=== PATIENT | male | born 1955 | race American Indian/Alaskan Native ===

== ENCOUNTER 2022-01-29 10:27 | Inpatient (IN) | payer SELFPAY ==
[2022-01-29 12:08] LABS: Alanine Aminotransferase 37 units/L (7-56); Albumin 3.8 g/dL (3.9-5); BUN/Creatinine Ratio 28; Blood Urea Nitrogen 33 mg/dL (9-20); Calcium 8.8 mg/dL (8.4-10.2); Hemolysis Index 0
--- NOTE | 2022-01-29 12:14 | Emergency Department Report ---
ED General Adult HPI - General Chief complaint: Dyspnea/Respdistress Stated complaint: FEEL SICK PUI?: Yes Time Seen by Provider: 01/29/22 11:13 Source: patient Mode of arrival: Ambulatory Limitations: No Limitations - History of Present Illness Initial comments: THIS IS A 66 YEAR OLD MALE WHO DENIES ANY PAST MEDICAL OR SURGICAL HISTORY AND STATES HE SMOKES MARIJUANA AND NOT CIGARETTE BROUGHT IN BY EMS TODAY WITH CONCERN OF SHORT OF BREATH FOR THE PAST FEW DAYS. PATIENT DENIES ANY OTHER SYMPTOMS. Denies fever chill night sweat dizziness blurred vision lightheadedness headache tinnitus ear pain runny nose sore throat loss of taste or smell chest pain palpitation abdominal pain nausea vomiting diarrhea constipation joint pain muscle pain new rash and heat or cold intolerance. Severity scale (0 -10): 0 - Related Data Allergies Allergy/AdvReac Type Severity Reaction Status Date / Time No Known Allergies Allergy Unverified 01/29/22 12:29 ED Review of Systems ROS: Stated complaint: FEEL SICK Other details as noted in HPI Comment: All other systems reviewed and negative Constitutional: no symptoms reported Eyes: as per HPI ENT: as per HPI Respiratory: cough, shortness of breath Cardiovascular: as per HPI Endocrine: no symptoms reported Gastrointestinal: as per HPI Musculoskeletal: as per HPI Skin: as per HPI Neurological: as per HPI Psychiatric: as per HPI Hematological/Lymphatic: as per HPI ED Past Medical Hx - Past Medical History Previous Medical History?: Yes ED Physical Exam - General Limitations: No Limitations, Altered Mental Status General appearance: alert, in distress (APPEARS TO BE IN MILD SOB) - Head Head exam: Present: atraumatic, normocephalic, normal inspection - Eye Eye exam: Present: normal appearance, PERRL, EOMI Pupils: Present: normal accommodation - ENT ENT exam: Present: normal exam, mucous membranes moist - Neck Neck exam: Present: normal inspection, full ROM - Respiratory Respiratory exam: Present: normal lung sounds bilaterally - Cardiovascular Cardiovascular Exam: Present: tachycardia - GI/Abdominal GI/Abdominal exam: Present: soft - Extremities Exam Extremities exam: Present: normal inspection, full ROM, normal capillary refill - Back Exam Back exam: Present: normal inspection, full ROM - Neurological Exam Neurological exam: Present: alert, oriented X3, CN II-XII intact - Psychiatric Psychiatric exam: Present: normal affect, normal mood - Skin Skin exam: Present: normal color ED Course Vital Signs 01/29/22 01/29/22 01/29/22 11:10 11:20 11:31 Temperature 98.2 F Pulse Rate 113 H 109 H 108 H Pulse Rate [ Anterior Bilateral Throughout] Respiratory 14 30 H 30 H Rate Respiratory Rate [Anterior Bilateral Throughout] Blood Pressure 186/123 Blood Pressure 128/95 [Right] O2 Sat by Pulse 65 L 82 L 92 Oximetry 01/29/22 01/29/22 01/29/22 11:45 12:01 12:15 Temperature Pulse Rate 104 H 108 H 109 H Pulse Rate [ Anterior Bilateral Throughout] Respiratory 25 H 35 H 30 H Rate Respiratory Rate [Anterior Bilateral Throughout] Blood Pressure 195/118 196/134 189/122 Blood Pressure [Right] O2 Sat by Pulse 88 88 83 L Oximetry 01/29/22 01/29/22 01/29/22 12:31 12:45 13:01 Temperature Pulse Rate 107 H 106 H 60 Pulse Rate [ Anterior Bilateral Throughout] Respiratory 31 H 29 H 20 Rate Respiratory Rate [Anterior Bilateral Throughout] Blood Pressure 178/115 191/122 191/122 Blood Pressure [Right] O2 Sat by Pulse 85 87 26 L Oximetry 01/29/22 01/29/22 01/29/22 13:15 13:20 13:31 Temperature Pulse Rate 109 H 109 H 108 H Pulse Rate [ Anterior Bilateral Throughout] Respiratory 31 H 32 H 31 H Rate Respiratory Rate [Anterior Bilateral Throughout] Blood Pressure 193/138 193/138 195/132 Blood Pressure [Right] O2 Sat by Pulse 96 97 Oximetry 01/29/22 01/29/22 01/29/22 13:34 13:45 14:01 Temperature Pulse Rate 107 H 103 H Pulse Rate [ 104 H Anterior Bilateral Throughout] Respiratory 33 H 31 H Rate Respiratory 28 H Rate [Anterior Bilateral Throughout] Blood Pressure 166/123 190/103 Blood Pressure [Right] O2 Sat by Pulse 97 96 Oximetry 01/29/22 01/29/22 14:15 14:31 Temperature Pulse Rate 103 H 104 H Pulse Rate [ Anterior Bilateral Throughout] Respiratory 31 H 32 H Rate Respiratory Rate [Anterior Bilateral Throughout] Blood Pressure 205/122 188/122 Blood Pressure [Right] O2 Sat by Pulse 99 100 Oximetry - Reevaluation(s) Reevaluation #1: 01/29/22 12:23 Suspected bilateral pneumonia versus edema with mild enlargement of the cardiac silhouette. German Hernandez MD NO LABS ARE BACK YET; I WILL START EMPIRICALLY ON ANTIBIOTICS. 01/29/22 14:28 EKG AT 1346: SINUS TACHY AT 105 BPM; NO ST ELEVATION OR DEPRESSION; NO WELLEN WAVES. STILL PENDING CTPA TO BE DONE. 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 THEY WILL COORDINATE. 01/29/22 14:[address] SCAN. 01/29/22 15:43 WE ARE COMPLETELY OUT OF OCCULT BLOOD TEST CARD; CALLED LAB TO SEND SOME OVER. PENDING TO RECEIVE THE KIT 01/29/22 16:27 FOBT NEGATIVE; PENDING TROPONIN TO RETURN AND THEN WILL CALL HOSPITALIST. 01/29/22 16:48 TROPONIN NO CHANGE AND AGAIN, NO CHEST PAIN. SPOKE TO DR. DUBON WHO KINDLY ACCEPTED THE PATIENT. ED Medical Decision Making - Lab Data Result diagrams: 01/29/22 11:27 01/29/22 11:27 Critical care attestation.: If time is entered above; I have spent that time in minutes in the direct care of this critically ill patient, excluding procedure time. ED Disposition Clinical Impression: Normocytic anemia, not due to blood loss, NSTEMI (non-ST elevated myocardial infarction), Acute exacerbation of CHF (congestive heart failure), Pneumonia Disposition: ADMITTED INPATIENT Is pt being admited?: Yes Does the pt Need Aspirin: No Condition: Stable Instructions: Bacterial Pneumonia (ED) Referrals: PRIMARY CARE, [Primary Care Provider] - 3-5 Days Time of Disposition: 16:18
--- NOTE | 2022-01-29 12:15 | XRay Report ---
CHEST 1 VIEW 01/29/2022 11:33 AM INDICATION / CLINICAL INFORMATION: Shortness of breath, hypoxia. COMPARISON: None available. FINDINGS: SUPPORT DEVICES: None. HEART / MEDIASTINUM: The cardiac silhouette is mildly enlarged. No other significant abnormality. LUNGS / PLEURA: There are multifocal bilateral airspace opacities. No significant pleural effusion. N o pneumothorax. ADDITIONAL FINDINGS: No significant additional findings. IMPRESSION: Suspected bilateral pneumonia versus edema with mild enlargement of the cardiac silhouette. Signer Name: German Hernandez MD Signed: 01/29/2022 12:11 PM Workstation Name: [id number]
[2022-01-29 12:31] LABS: Hematocrit 22.3 % (35.5-45.6); Hemoglobin 7.1 gm/dl (11.8-15.2); Mean Corpuscular HGB Conc 32 % (32-34); Mean Corpuscular Volume 84 fl (84-94); Platelet Count 375 K/mm3 (140-440); Red Blood Count 2.66 M/mm3 (3.65-5.03); Red Cell Distribution Width 17.7 % (13.2-15.2)
[2022-01-29] MEDS ORDERED: FUROSEMIDE 100 MG/10 ML INJ IV ONE (13:00)
[2022-01-29] MEDS ORDERED: AZITHROMYCIN/NS 500 MG/250 ML 500 MG/250 ML BAG IV ONE (13:00)
[2022-01-29] MEDS ORDERED: IPRATROPIUM/ALBUTEROL SULFATE 3 ML AMPUL.NEB IH ONE (13:00)
[2022-01-29] MEDS ORDERED: LEVALBUTEROL 0.63 MG/3 ML NEBU IH ONE (13:00)
[2022-01-29] MEDS ORDERED: cefTRIAXone/NS 2 GM/100 ML 2 GM/100 ML BAG IV ONE (13:00)
[2022-01-29 13:02] LABS: Chol/HDL Ratio 2.73 %
[2022-01-29 14:48] LABS: INR 0.96 (0.87-1.13); Partial Thromboplastin Time 26.4 Sec. (24.2-36.6)
[2022-01-29 15:14] LABS: ABG Base Excess -1.9 mmol/L (-2.0-3.0); ABG HCO3 22.4 mmol/L (20.0-26.0); ABG Methemoglobin 0.5 % (0.0-1.5); ABG Oxygen Saturation 98.7 % (95.0-99.0); ABG PCO2 35.7 mm Hg; ABG PH 7.416 pH Units (7.350-7.450); ABG PO2 134.7 mm Hg (80.0-90.0)
--- NOTE | 2022-01-29 15:18 | Cat Scan Report ---
CTA CHEST WITH CONTRAST INDICATION / CLINICAL INFORMATION: ELEVATEDD DIMER AND DESAT. TECHNIQUE: Axial CT images were obtained through the chest after injection of 100 cc of Omnipaque 350 IV contrast. 3 plane MIP and/or 3D reconstructions were produced. All CT scans at this location are performed using CT dose reduction for ALARA by means of automated exposure control. COMPARISON: None available. FINDINGS: PULMONARY EMBOLUS: Slightly limited by breathing motion artifact but no pulmonary embolus is detected . THORACIC AORTA: No significant abnormality. HEART: Heart size is borderline CORONARY ARTERY CALCIFICATION: Present -- Mild. MEDIASTINUM / SKINNY: No significant abnormality. PLEURA: No pleural effusion. No pneumothorax. LUNGS: There are diffuse bilateral interstitial opacities concerning for pulmonary edema or atypical pneumonia. No consolidation or mass. ADDITIONAL FINDINGS: None. UPPER ABDOMEN: No acute findings. SKELETAL STRUCTURES: No significant osseous abnormality. IMPRESSION: 1. No CT evidence for pulmonary embolism. 2. Borderline heart size. 3. Diffuse bilateral interstitial opacities concerning for pulmonary edema or atypical pneumonia. Signer Name: Teofilo Lebron Jr, MD Signed: 01/29/2022 3:14 PM Workstation Name: [id number]
[2022-01-29 16:01] LABS: Color,Urine Straw (Yellow)
[2022-01-29 16:17] LABS: Bacteria,Urine 1+ /HPF (Negative); Hyaline Casts,Urine 9 /LPF; WBC,Urine < 1.0 /HPF (0.0-6.0)
[2022-01-29] MEDS ORDERED: oxyCODONE /ACETAMINOPHEN 5-325MG TAB PO PRN (17:16)
[2022-01-29] MEDS ORDERED: ONDANSETRON 4 MG/2 ML INJ IV PRN (17:16)
[2022-01-29] MEDS ORDERED: ACETAMINOPHEN 325 MG TAB PO PRN (17:16)
--- NOTE | 2022-01-29 17:24 | History and Physical Report ---
History of Present Illness Date of examination: 01/29/22 Date of admission: 01/29/22 Chief complaint: Fatigue and shortness of breath History of present illness: 66 year old male with no PMH brought in by family for 2-3 day history of shortness of breath and severe fatigue. 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 He reports fever; has not been vaccinated for COVID. In the ED he is tachycardic, and hypertensive, placed on NIV. Family including 2 nieces and a sister are at bedside to corroborate the story. Past History Past Medical History: No medical history. denies: acute CO, atrial fib Past Surgical History: No surgical history Social history: no significant social history Medications and Allergies Allergies Allergy/AdvReac Type Severity Reaction Status Date / Time No Known Allergies Allergy Unverified 01/29/22 12:29 Active Meds: Active Medications Acetaminophen (Acetaminophen 325 Mg Tab) 650 mg PO Q4H PRN PRN Reason: Pain MILD(1-3)/Fever >100.5/STACY Furosemide (Furosemide 40 Mg/4 Ml Inj) 40 mg IV 0600,1800 GARRETT Ondansetron HCl (Ondansetron 4 Mg/2 Ml Inj) 4 mg IV Q8H PRN PRN Reason: Nausea And Vomiting Oxycodone/Acetaminophen (Oxycodone /Acetaminophen 5-325mg Tab) 1 tab PO Q6H PRN PRN Reason: Pain, Moderate (4-6) Potassium Chloride (Potassium Chloride Er 20 Meq Tab) 20 meq PO Q12H GARRETT Sodium Chloride (Sodium Chloride 0.9% 10 Ml Flush Syringe) 10 ml IV BID GARRETT Sodium Chloride (Sodium Chloride 0.9% 10 Ml Flush Syringe) 10 ml IV PRN PRN PRN Reason: LINE FLUSH Review of Systems Constitutional: fever, fatigue Cardiovascular: shortness of breath Respiratory: shortness of breath Exam - Constitutional Vitals: Temp Pulse Resp BP Pulse Ox 98.2 F 104 H 33 H 177/113 94 01/29/22 11:10 01/29/22 17:02 01/29/22 17:02 01/29/22 17:02 01/29/22 17:02 General appearance: Present: other - EENT ENT: hearing intact - Respiratory Respiratory effort: labored - Cardiovascular Rhythm: other Heart Sounds: Present: S1 & S2 - Extremities Extremity abnormal: edema - Abdominal General gastrointestinal: Present: soft, non-tender - Integumentary Integumentary: Present: warm - Psychiatric Psychiatric: appropriate mood/affect HEART Score - HEART Score History: Moderately suspicious Age: 45-65 Troponin: Troponin T 0.082 ng/mL (0.00-0.029) H 01/29/22 15:25 Results - Labs CBC & Chem 7: 01/29/22 11:27 01/29/22 11:27 Labs: Laboratory Last Values WBC 13.8 K/mm3 (4.5-11.0) H 01/29/22 11:27 RBC 2.66 M/mm3 (3.65-5.03) L 01/29/22 11:27 Hgb 7.1 gm/dl (11.8-15.2) L 01/29/22 11:27 Hct 22.3 % (35.5-45.6) L 01/29/22 11:27 MCV 84 fl (84-94) 01/29/22 11:27 MCH 27 pg (28-32) L 01/29/22 11:27 MCHC 32 % (32-34) 01/29/22 11:27 RDW 17.7 % (13.2-15.2) H 01/29/22 11:27 Plt Count 375 K/mm3 (140-440) 01/29/22 11:27 PT 13.8 Sec. (12.2-14.9) 01/29/22 13:18 INR 0.96 (0.87-1.13) 01/29/22 13:18 APTT 26.4 Sec. (24.2-36.6) 01/29/22 13:18 D-Dimer 360.74 ng/mlDDU (0-234) H 01/29/22 11:27 ABG pH 7.416 pH Units (7.350-7.450) 01/29/22 14:35 ABG pCO2 35.7 mm Hg 01/29/22 14:35 ABG pO2 134.7 mm Hg (80.0-90.0) H 01/29/22 14:35 ABG HCO3 22.4 mmol/L (20.0-26.0) 01/29/22 14:35 ABG O2 Saturation 98.7 % (95.0-99.0) 01/29/22 14:35 ABG O2 Content 8.2 (0.0-44) 01/29/22 14:35 ABG Base Excess -1.9 mmol/L (-2.0-3.0) 01/29/22 14:35 ABG Hemoglobin 5.8 gm/dl (14.0-18.0) L 01/29/22 14:35 ABG Carboxyhemoglobin 1.5 % (0.0-5.0) 01/29/22 14:35 ABG Methemoglobin 0.5 % (0.0-1.5) 01/29/22 14:35 Oxyhemoglobin 96.7 % (95.0-99.0) 01/29/22 14:35 FiO2 100 % 01/29/22 14:35 Sodium 134 mmol/L (137-145) L 01/29/22 11:27 Potassium 4.7 mmol/L (3.6-5.0) 01/29/22 11:27 Chloride 96.1 mmol/L (98-107) L 01/29/22 11:27 Carbon Dioxide 17 mmol/L (22-30) L 01/29/22 11:27 Anion Gap 26 mmol/L 01/29/22 11:27 BUN 33 mg/dL (9-20) H 01/29/22 11:27 Creatinine 1.2 mg/dL (0.8-1.3) 01/29/22 11:27 Estimated GFR > 60 ml/min 01/29/22 11:27 BUN/Creatinine Ratio 28 % 01/29/22 11:27 Glucose 89 mg/dL (75-100) 01/29/22 11:27 Calcium 8.8 mg/dL (8.4-10.2) 01/29/22 11:27 Magnesium 2.30 mg/dL (1.7-2.3) 01/29/22 11:27 Total Bilirubin 0.30 mg/dL (0.1-1.2) 01/29/22 11:27 AST 45 units/L (5-40) H 01/29/22 11:27 ALT 37 units/L (7-56) 01/29/22 11:27 Alkaline Phosphatase 118 units/L (35-129) 01/29/22 11:27 Troponin T 0.082 ng/mL (0.00-0.029) H 01/29/22 15:25 NT-Pro-B Natriuret Pep 99402 pg/mL (0-900) H 01/29/22 11:27 Total Protein 5.8 g/dL (6.3-8.2) L 01/29/22 11:27 Albumin 3.8 g/dL (3.9-5) L 01/29/22 11:27 Albumin/Globulin Ratio 1.9 % 01/29/22 11:27 Triglycerides 66 mg/dL (2-149) 01/29/22 11:27 Cholesterol 183 mg/dL (50-199) 01/29/22 11:27 LDL Cholesterol Direct 106 mg/dL (50-130) 01/29/22 11:27 HDL Cholesterol 67 mg/dL (40-59) H 01/29/22 11:27 Cholesterol/HDL Ratio 2.73 % 01/29/22 11:27 Procalcitonin 0.48 ng/mL (<0.15) 01/29/22 12:07 Urine Color Straw (Yellow) 01/29/22 15:28 Urine Turbidity Clear (Clear) 01/29/22 15:28 Specific [place] (Man) 1.005 (1.003-1.030) 01/29/22 15:28 Ur Protein (Man) Negative mg/dL (Negative) 01/29/22 15:28 Ur Ketones (Man) Negative (Negative) 01/29/22 15:28 Ur Nitrite (Man) Negative (Negative) 01/29/22 15:28 Urine Bilirubin (Man) Negative (Negative) 01/29/22 15:28 Leukocyte Esterase (Man) Negative (Negative) 01/29/22 15:28 Urine WBC (Auto) < 1.0 /HPF (0.0-6.0) 01/29/22 15:28 Urine RBC (Auto) 4.0 /HPF (0.0-6.0) 01/29/22 15:28 U Epithel Cells (Auto) 1.0 /HPF (0-13.0) 01/29/22 15:28 Urine Bacteria (Auto) 1+ /HPF (Negative) 01/29/22 15:28 Urine RBC (Manual) Negative (Negative) 08/26/22 15:28 Hyaline Casts 9 /LPF 01/29/22 15:28 Blood Type O POSITIVE 01/29/22 13:18 Antibody Screen Negative 01/29/22 13:18 Microbiology: Microbiology 01/29/22 16:00 Stool Stool Occult Blood (DESTINEE) - Final 01/29/22 13:01 Peripheral/Venous Blood Culture - Preliminary Culture in Progress 01/29/22 13:01 Peripheral/Venous Blood Culture - Preliminary Culture in Progress Assessment and Plan Advance Directives: Yes (Full code) VTE prophylaxis?: Chemical Plan of care discussed with patient/family: Yes - Patient Problems (1) Acute exacerbation of CHF (congestive heart failure) Current Visit: Yes Status: Acute Qualifiers: Heart failure type: diastolic Qualified Code(s): I50.33 - Acute on chronic diastolic (congestive) heart failure Plan to address problem: IV Lasix 40mg BID Daily I/O Daily weight Echocardiogram to assess EF, wall motion abnormalities, and valve function Cardiology consult (2) Hypertensive emergency Current Visit: Yes Status: Acute Plan to address problem: Valsartan 160mg Q12h Carvedilol 6.25mg Q12h Amlodipine 5mg Q24h Hydralazine 10mg IV Q3h prn for SBP > 160mmHg and DBP > 95mmHg (3) Anemia Current Visit: Yes Status: Acute Plan to address problem: Anemia workup Iron studies Vitamin B12 and Folic Acid levels (4) Elevated troponin Current Visit: Yes Status: Acute Plan to address problem: Serial troponins Possible NSTEMI Start heparin gtt Defer to cardiology regarding continuation of heparin Defer to cardiology regarding lexiscan/cardiac cath (5) DVT prophylaxis Current Visit: Yes Status: Acute Plan to address problem: Patient on heparin and GI prophylaxis (6) Advance care planning Current Visit: Yes Status: Acute Plan to address problem: Disease education conducted, care plan discussed, diagnosis discussed, prognosis discussed. Patient is full code Patient acknowledges understanding and agreement with care plan. + 30 minutes
[2022-01-29] MEDS ORDERED: VALSARTAN 160MG TAB PO SCH (18:00)
[2022-01-29] MEDS: FUROSEMIDE 40 MG/4 ML INJ IV SCH (18:22)
[2022-01-29] MEDS: hydrALAZINE 20 MG/1 ML INJ IV PRN (19:54)
[2022-01-29 20:07] LABS: Iron 10 ug/dL (49-181); Total Iron Binding Capacity 337 mcg/dL (250-450)
[2022-01-30] MEDS: carvediloL 6.25 MG TAB PO SCH ×3 (00:04→21:59)
[2022-01-30] MEDS: POTASSIUM CHLORIDE ER 20 MEQ TAB PO SCH ×2 (00:04→09:10)
[2022-01-30] MEDS: amLODIPine 5 MG TAB PO SCH ×2 (00:04→09:10)
[2022-01-30] MEDS: VALSARTAN 160MG TAB PO SCH ×3 (00:04→22:00)
[2022-01-30] MEDS: FUROSEMIDE 40 MG/4 ML INJ IV SCH (06:52)
[2022-01-30 07:26] LABS: Hematocrit 21.5 % (35.5-45.6); Hemoglobin 6.9 gm/dl (11.8-15.2); Mean Corpuscular HGB Conc 32 % (32-34); Mean Corpuscular Volume 83 fl (84-94); Platelet Count 309 K/mm3 (140-440); Red Cell Distribution Width 17.6 % (13.2-15.2)
[2022-01-30 07:39] LABS: BUN/Creatinine Ratio 28; Blood Urea Nitrogen 31 mg/dL (9-20); Calcium 7.9 mg/dL (8.4-10.2); Hemolysis Index 4
[2022-01-30] MEDS ORDERED: SODIUM CHLORIDE 0.9% 500 ML 500 ML IV ONE (08:15)
--- NOTE | 2022-01-30 09:15 | Electrocardiograph Report ---
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
[2022-01-30 09:40] LABS: Anisocytosis 2+; Band Neutrophils # (Manual) 0.1 K/mm3; Basophils % (Manual) 0 % (0.0-1.8); Eosinophils % (Manual) 0 % (0.0-4.3); Hypochromasia 1+; Platelet Estimate Consistent w Auto; Total Cells Counted 100
[2022-01-30 09:50] LABS: Total Iron Binding Capacity 252 mcg/dL (250-450)
--- NOTE | 2022-01-30 12:17 | Progress Note ---
Assessment and Plan Assessment and plan: History of present illness: 66 year old male with no PMH brought in by family for 2-3 day history of shortness of breath and severe fatigue. 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 He reports fever; has not been vaccinated for COVID. In the ED he is tachycardic, and hypertensive, placed on NIV. Family including 2 nieces and a sister are at bedside to corroborate the story. Hospital Course: 01/30: Doubt CHF as primary etiology of symptoms. Patient comfortably but is requiring bipap currently. patient appears to have atypical pneumonia consistent with viral pattern in covid pna. Coronavirus pcr pending. Initiated CAP coverage with azithro/rocephin IV. Pulmonary consultation placed. Doubt NSTEMI, d/c heparin gtt. troponin elevation likely type 2 OH. CTA Chest appears to be point more to pna vs chf. Hold Lasix for now due to low blood pressure. Patient appeared euvolemic on exam. Will await ECHO to eval wall motion/function. Will follow for cardiology input. Transfer to [facility] for closer monitoring. Assessment and Plan #Acute hypoxic respiratory failure POA #Sepsis POA #Atpyical pneumonia Plan to address problem: complaint of sob, muscle aches, chills prior to admission Currently on BIPAP, de-escalate as sats tolerate. Etiology: Atyipcal PNA > pulmonary edema WBC: 13.9K COVID PCR pending, if positive will consult ID. BCX, SCX Azithromycin IV and Rocpehin IV for abx therapy. Albuterol/budesonide nebs CXR: bilateral airspace opacities CTA chest negative for PE, pulmonary edema, findings suggestive of atypical pneumonia dc IV Lasix 40mg BID, patient bp low and appears euvolemic Daily I/O Daily weight BNP: 99182 Echocardiogram to assess EF, wall motion abnormalities, and valve function Cardiology consult on admission Pulmonary consultation for atypical pna/cta findings. (2) Hypertensive emergency Current Visit: Yes Status: Acute Plan to address problem: Valsartan 160mg Q12h Carvedilol 6.25mg Q12h dc Amlodipine 5mg Q24h Hydralazine 10mg IV Q3h prn for SBP > 160mmHg and DBP > 95mmHg (3) Anemia Current Visit: Yes Status: Acute Plan to address problem: Anemia workup Iron studies Vitamin B12 and Folic Acid levels 1 unit prbc ordered (4) Type 2 OH Current Visit: Yes Status: Acute Plan to address problem: Serial troponin: 0.083, 0.082... likely supply demand from sepsis. dc heparin gtt, doubt NSTEMI, Defer to cardiology regarding continuation of heparin Defer to cardiology regarding lexiscan/cardiac cath (5) DVT prophylaxis Current Visit: Yes Status: Acute Plan to address problem: - dvt ppx with lovenox 40 mg daily. (6) Advance care planning Current Visit: Yes Status: Acute Plan to address problem: Disease education conducted, care plan discussed, diagnosis discussed, prognosis discussed. Patient is full code Patient acknowledges understanding and agreement with care plan. + 30 minutes The high probability of a clinically significant, sudden or life threatening deterioration of the [multi] system(s) required my full and direct attention, intervention and personal management. The aggregate critical care time was [60] minutes. This time is in addition to time spent performing reported procedures but includes the following: [x] Data Review and interpretation [x] Patient assessment and monitoring of vital signs [x] Documentation [x] Medication orders and management History Interval history: No acute complaints on encounter. patient states that prior to admission he had muscle aches, fatigue ,and chills. Hospitalist Physical - Physical exam Narrative exam: Physical Exam: VITAL SIGNS: Reviewed. GENERAL: The patient appears normally developed, Vital signs as documented. on bipap, NAD. thin elderly gentleman HEAD: No signs of head trauma. EYES: Pupils are equal. Extraocular motions intact. EARS: Hearing grossly intact. MOUTH: Oropharynx is normal. NECK: No adenopathy, no JVD. CHEST: coarse breath sounds. BL rhonchi CARDIAC: Regular rate and rhythm. S1 and S2, without murmurs, gallops, or rubs. VASCULAR: No Edema. Peripheral pulses normal and equal in all extremities. ABDOMEN: Soft, non tender and non distended. No rebound or guarding, and no masses palpated. Bowel Sounds normal. MUSCULOSKELETAL: Good range of motion of all major joints. Extremities without clubbing, cyanosis or edema. NEUROLOGIC EXAM: Alert and oriented x 4. no focal sensory or strength deficits. PSYCHIATRIC: Mood normal. SKIN: detail exam as documented in skin assessment - Constitutional Vitals: Temp Pulse Resp BP Pulse Ox 98.1 F 67 19 94/66 100 01/30/22 11:45 01/30/22 11:45 01/30/22 11:45 01/30/22 11:45 01/30/22 11:45 General appearance: Present: other HEART Score - HEART Score Age: 45-65 Troponin: Troponin T 0.082 ng/mL (0.00-0.029) H 01/29/22 15:25 Results - Labs CBC & Chem 7: 01/30/22 07:05 01/30/22 07:05 Labs: Laboratory Last Values WBC 13.9 K/mm3 (4.5-11.0) H 01/30/22 07:05 RBC 2.60 M/mm3 (3.65-5.03) L 01/30/22 07:05 Hgb 6.9 gm/dl (11.8-15.2) L 01/30/22 07:05 Hct 21.5 % (35.5-45.6) L 01/30/22 07:05 MCV 83 fl (84-94) L 01/30/22 07:05 MCH 27 pg (28-32) L 01/30/22 07:05 MCHC 32 % (32-34) 01/30/22 07:05 RDW 17.6 % (13.2-15.2) H 01/30/22 07:05 Plt Count 309 K/mm3 (140-440) 01/30/22 07:05 Add Manual Diff Complete 01/30/22 07:05 Total Counted 100 01/30/22 07:05 Seg Neutrophils % Flap Lining Binder 01/30/22 07:05 Seg Neuts % (Manual) 94.0 % (40.0-70.0) H 01/30/22 07:05 Band Neutrophils % 1.0 % 01/30/22 07:05 Lymphocytes % (Manual) 1.0 % (13.4-35.0) L 01/30/22 07:05 Reactive Lymphs % (Man) 0 % 01/30/22 07:05 Monocytes % (Manual) 4.0 % (0.0-7.3) 01/30/22 07:05 Eosinophils % (Manual) 0 % (0.0-4.3) 01/30/22 07:05 Basophils % (Manual) 0 % (0.0-1.8) 01/30/22 07:05 Metamyelocytes % 0 % 01/30/22 07:05 Myelocytes % 0 % 01/30/22 07:05 Promyelocytes % 0 % 01/30/22 07:05 Blast Cells % 0 % 01/30/22 07:05 Nucleated RBC % 4.0 % (0.0-0.9) H 01/30/22 07:05 Seg Neutrophils # Man 13.1 K/mm3 (1.8-7.7) H 01/30/22 07:05 Band Neutrophils # 0.1 K/mm3 01/30/22 07:05 Lymphocytes # (Manual) 0.1 K/mm3 (1.2-5.4) L 01/30/22 07:05 Abs React Lymphs (Man) 0.0 K/mm3 01/30/22 07:05 Monocytes # (Manual) 0.6 K/mm3 (0.0-0.8) 01/30/22 07:05 Eosinophils # (Manual) 0.0 K/mm3 (0.0-0.4) 01/30/22 07:05 Basophils # (Manual) 0.0 K/mm3 (0.0-0.1) 01/30/22 07:05 Metamyelocytes # 0.0 K/mm3 01/30/22 07:05 Myelocytes # 0.0 K/mm3 01/30/22 07:05 Promyelocytes # 0.0 K/mm3 01/30/22 07:05 Blast Cells # 0.0 K/mm3 01/30/22 07:05 WBC Morphology Not Reportable 01/30/22 07:05 Hypersegmented Neuts Not Reportable 01/30/22 07:05 Hyposegmented Neuts Not Reportable 01/30/22 07:05 Hypogranular Neuts Not Reportable 01/30/22 07:05 Smudge Cells Not Reportable 01/30/22 07:05 Toxic Granulation Not Reportable 01/30/22 07:05 Toxic Vacuolation Not Reportable 01/30/22 07:05 Dohle Bodies Not Reportable 01/30/22 07:05 Pelger-Huet Anomaly Not Reportable 01/30/22 07:05 Idalia Rods Not Reportable 01/30/22 07:05 Platelet Estimate Consistent w auto 01/30/22 07:05 Clumped Platelets Not Reportable 01/30/22 07:05 Plt Clumps, EDTA Not Reportable 01/30/22 07:05 Large Platelets Not Reportable 01/30/22 07:05 Giant Platelets Not Reportable 01/30/22 07:05 Platelet Satelliting Not Reportable 01/30/22 07:05 Plt Morphology Comment Not Reportable 01/30/22 07:05 RBC Morphology Not Reportable 01/30/22 07:05 Dimorphic RBCs Not Reportable 01/30/22 07:05 Polychromasia Not Reportable 01/30/22 07:05 Hypochromasia 1+ 01/30/22 07:05 Poikilocytosis Not Reportable 01/30/22 07:05 Anisocytosis 2+ 01/30/22 07:05 Microcytosis Not Reportable 01/30/22 07:05 Macrocytosis Not Reportable 01/30/22 07:05 Spherocytes Not Reportable 01/30/22 07:05 Pappenheimer Bodies Not Reportable 01/30/22 07:05 Sickle Cells Not Reportable 01/30/22 07:05 Target Cells Not Reportable 01/30/22 07:05 Tear Drop Cells Not Reportable 01/30/22 07:05 Ovalocytes Not Reportable 01/30/22 07:05 Helmet Cells Not Reportable 01/30/22 07:05 [place] Bodies Not Reportable 01/30/22 07:05 [place] Rings Not Reportable 01/30/22 07:05 [place] Cells Not Reportable 01/30/22 07:05 Bite Cells Not Reportable 01/30/22 07:05 Crenated Cell Not Reportable 01/30/22 07:05 Elliptocytes Not Reportable 01/30/22 07:05 Acanthocytes (Spur) Not Reportable 01/30/22 07:05 Rouleaux Not Reportable 01/30/22 07:05 Hemoglobin C Crystals Not Reportable 01/30/22 07:05 Schistocytes Not Reportable 01/30/22 07:05 Malaria parasites Not Reportable 01/30/22 07:05 Benji Bodies Not Reportable 01/30/22 07:05 Hem Pathologist Commnt No 01/30/22 07:05 PT 13.8 Sec. (12.2-14.9) 01/29/22 13:18 INR 0.96 (0.87-1.13) 01/29/22 13:18 APTT 26.4 Sec. (24.2-36.6) 01/29/22 13:18 D-Dimer 360.74 ng/mlDDU (0-234) H 01/29/22 11:27 ABG pH 7.416 pH Units (7.350-7.450) 01/29/22 14:35 ABG pCO2 35.7 mm Hg 01/29/22 14:35 ABG pO2 134.7 mm Hg (80.0-90.0) H 01/29/22 14:35 ABG HCO3 22.4 mmol/L (20.0-26.0) 01/29/22 14:35 ABG O2 Saturation 98.7 % (95.0-99.0) 01/29/22 14:35 ABG O2 Content 8.2 (0.0-44) 01/29/22 14:35 ABG Base Excess -1.9 mmol/L (-2.0-3.0) 01/29/22 14:35 ABG Hemoglobin 5.8 gm/dl (14.0-18.0) L 01/29/22 14:35 ABG Carboxyhemoglobin 1.5 % (0.0-5.0) 01/29/22 14:35 ABG Methemoglobin 0.5 % (0.0-1.5) 01/29/22 14:35 Oxyhemoglobin 96.7 % (95.0-99.0) 01/29/22 14:35 FiO2 100 % 01/29/22 14:35 Sodium 139 mmol/L (137-145) 01/30/22 07:05 Potassium 3.8 mmol/L (3.6-5.0) 01/30/22 07:05 Chloride 98.5 mmol/L (98-107) 01/30/22 07:05 Carbon Dioxide 29 mmol/L (22-30) D 01/30/22 07:05 Anion Gap 15 mmol/L 01/30/22 07:05 BUN 31 mg/dL (9-20) H 01/30/22 07:05 Creatinine 1.1 mg/dL (0.8-1.3) 01/30/22 07:05 Estimated GFR > 60 ml/min 01/30/22 07:05 BUN/Creatinine Ratio 28 % 01/30/22 07:05 Glucose 85 mg/dL (75-100) 01/30/22 07:05 Calcium 7.9 mg/dL (8.4-10.2) L 01/30/22 07:05 Magnesium 2.30 mg/dL (1.7-2.3) 01/29/22 11:27 Iron Flap Lining Binder 01/30/22 08:53 TIBC 252 mcg/dL (250-450) 01/30/22 08:53 % Saturation Not Reportable 01/30/22 08:53 Transferrin 214 mg/dl (180-329) 01/30/22 08:53 Total Bilirubin 0.30 mg/dL (0.1-1.2) 01/29/22 11:27 AST 45 units/L (5-40) H 01/29/22 11:27 ALT 37 units/L (7-56) 01/29/22 11:27 Alkaline Phosphatase 118 units/L (35-129) 01/29/22 11:27 Troponin T 0.082 ng/mL (0.00-0.029) H 01/29/22 15:25 NT-Pro-B Natriuret Pep 41624 pg/mL (0-900) H 01/29/22 11:27 Total Protein 5.8 g/dL (6.3-8.2) L 01/29/22 11:27 Albumin 3.8 g/dL (3.9-5) L 01/29/22 11:27 Albumin/Globulin Ratio 1.9 % 01/29/22 11:27 Triglycerides 66 mg/dL (2-149) 01/29/22 11:27 Cholesterol 183 mg/dL (50-199) 01/29/22 11:27 LDL Cholesterol Direct 106 mg/dL (50-130) 01/29/22 11:27 HDL Cholesterol 67 mg/dL (40-59) H 01/29/22 11:27 Cholesterol/HDL Ratio 2.73 % 01/29/22 11:27 Vitamin B12 1059 pg/mL (211-911) H 01/29/22 18:54 Procalcitonin 0.48 ng/mL (<0.15) 01/29/22 12:07 Urine Color Straw (Yellow) 01/29/22 15:28 Urine Turbidity Clear (Clear) 01/29/22 15:28 Specific [place] (Man) 1.005 (1.003-1.030) 01/29/22 15:28 Ur Protein (Man) Negative mg/dL (Negative) 01/29/22 15:28 Ur Ketones (Man) Negative (Negative) 01/29/22 15:28 Ur Nitrite (Man) Negative (Negative) 01/29/22 15:28 Urine Bilirubin (Man) Negative (Negative) 01/29/22 15:28 Leukocyte Esterase (Man) Negative (Negative) 01/29/22 15:28 Urine WBC (Auto) < 1.0 /HPF (0.0-6.0) 01/29/22 15:28 Urine RBC (Auto) 4.0 /HPF (0.0-6.0) 01/29/22 15:28 U Epithel Cells (Auto) 1.0 /HPF (0-13.0) 01/29/22 15:28 Urine Bacteria (Auto) 1+ /HPF (Negative) 01/29/22 15:28 Urine RBC (Manual) Negative (Negative) 01/29/22 15:28 Hyaline Casts 9 /LPF 01/29/22 15:28 Blood Type O POSITIVE 01/29/22 13:18 Antibody Screen Negative 01/29/22 13:18 Crossmatch See Detail 01/29/22 13:18 Microbiology: Microbiology 01/29/22 16:00 Stool Stool Occult Blood ([place]) - Final 01/29/22 13:01 Peripheral/Venous Blood Culture - Preliminary Culture in Progress 01/29/22 13:01 Peripheral/Venous Blood Culture - Preliminary Culture in Progress Zaldivar/IV: Voiding Method Urinal Active Medications - Current Medications Current Medications: Generic Name Dose Route Start Last Admin Trade Name Freq PRN Reason Stop Dose Admin Acetaminophen 650 mg 01/29/22 17:16 Acetaminophen 325 Mg Tab PO Q4H PRN Pain MILD(1-3)/Fever >100.5/STACY Amlodipine Besylate 5 mg 01/29/22 19:00 01/30/22 09:10 Amlodipine 5 Mg Tab PO 5 mg QDAY GARRETT Administration Carvedilol 6.25 mg 01/29/22 22:00 01/30/22 09:10 Carvedilol 6.25 Mg Tab PO 6.25 mg BID GARRETT Administration Furosemide 40 mg 01/29/22 18:00 01/30/22 06:52 Furosemide 40 Mg/4 Ml Inj IV 40 mg 0600,1800 GARRETT Administration Hydralazine HCl 10 mg 01/29/22 18:13 01/29/22 19:54 Hydralazine 20 Mg/1 Ml Inj IV 10 mg Q3H PRN Administration Blood Pressure Ondansetron HCl 4 mg 01/29/22 17:16 Ondansetron 4 Mg/2 Ml Inj IV Q8H PRN Nausea And Vomiting Oxycodone/Acetaminophen 1 tab 01/29/22 17:16 Oxycodone /Acetaminophen 5-325mg Tab PO Q6H PRN Pain, Moderate (4-6) Potassium Chloride 20 meq 01/29/22 22:00 01/30/22 09:10 Potassium Chloride Er 20 Meq Tab PO 20 meq Q12HR GARRETT Administration Sodium Chloride 10 ml 01/29/22 22:00 01/30/22 09:10 Sodium Chloride 0.9% 10 Ml Flush Syringe IV 10 ml BID GARRETT Administration Sodium Chloride 10 ml 01/29/22 17:16 Sodium Chloride 0.9% 10 Ml Flush Syringe IV PRN PRN LINE FLUSH Valsartan 160 mg 01/29/22 22:00 01/30/22 09:10 Valsartan 160mg Tab PO 160 mg Q12HR GARRETT Administration
[2022-01-30] MEDS ORDERED: REMDESIVIR 200 MG in SODIUM CHLORIDE 0.9% 250ML 250 ML IV ONE (13:16)
--- NOTE | 2022-01-30 16:20 | Consultation ---
History of Present Illness Consult date: 01/30/22 Consult reason: shortness of breath History of present illness: The patient is a 66-year-old man with no prior reported cardiac history, presented to the hospital with several days of shortness of breath. He was evaluated in the emergency room and referred for admission. Cardiac consultation by the primary medical team was for evaluation of "CHF". The patient has no reported chest pain, no palpitations, no edema. My review of his work-up so far: EKG was a sinus rhythm with early repolarization changes, no acute ischemic changes. Chest x-ray was markedly abnormal for bilateral fluffy infiltrates, concentrated in the right middle lobe and left lung field, consistent with bilateral pneumonia. Further work-up with serology shows that the patient is positive COVID infection. Past History Past Medical History: No medical history Past Surgical History: No surgical history Social history: no significant social history Medications and Allergies Allergies Allergy/AdvReac Type Severity Reaction Status Date / Time No Known Allergies Allergy Unverified 01/29/22 12:29 Home Medications Medication Instructions Recorded Confirmed Last Taken Type No Known Home Medications [No 01/30/22 01/30/22 Unknown History Reported Home Medications] Active Meds: Active Medications Acetaminophen (Acetaminophen 325 Mg Tab) 650 mg PO Q4H PRN PRN Reason: Pain MILD(1-3)/Fever >100.5/STACY Carvedilol (Carvedilol 6.25 Mg Tab) 6.25 mg PO BID [facility] Last Admin: 01/30/22 09:10 Dose: 6.25 mg Dexamethasone (Dexamethasone 4 Mg/Ml Vial) 6 mg IV Q24HR [facility] Stop: 02/09/22 13:59 Enoxaparin Sodium (Enoxaparin 40 Mg/0.4 Ml Inj) 40 mg SUB-Q QDAY@2200 [facility]; Protocol Hydralazine HCl (Hydralazine 20 Mg/1 Ml Inj) 10 mg IV Q3H PRN PRN Reason: Blood Pressure Last Admin: 01/29/22 19:54 Dose: 10 mg Azithromycin (Zithromax/Ns) 500 mg in 250 mls @ 250 mls/hr IV Q24H [facility] Stop: 02/04/22 12:59 Ceftriaxone Sodium (Rocephin/Ns 1 Gm/50 Ml) 1 gm in 50 mls @ 100 mls/hr IV Q24H [facility]; Protocol Stop: 02/04/22 12:59 Remdesivir 100 mg/ Sodium (Chloride) 250 mls @ 500 mls/hr IV Q24HR@1400 [facility] Stop: 02/03/22 14:29 Ondansetron HCl (Ondansetron 4 Mg/2 Ml Inj) 4 mg IV Q8H PRN PRN Reason: Nausea And Vomiting Sodium Chloride (Sodium Chloride 0.9% 10 Ml Flush Syringe) 10 ml IV BID [facility] Last Admin: 01/30/22 09:10 Dose: 10 ml Sodium Chloride (Sodium Chloride 0.9% 10 Ml Flush Syringe) 10 ml IV PRN PRN PRN Reason: LINE FLUSH Sodium Chloride (Sodium Chloride 0.9% 50 Ml Ivpb) 50 ml IV Q24HR@1400 [facility] Stop: 02/03/22 14:01 Valsartan (Valsartan 160mg Tab) 160 mg PO Q12HR [facility] Last Admin: 01/30/22 09:10 Dose: 160 mg Review of Systems Cardiovascular: shortness of breath, no chest pain, no orthopnea, no palpitations, no rapid/irregular heart beat, no edema, no syncope, no lig htheadedness Physical Examination Vital Signs Temp Pulse Resp BP Pulse Ox 98.2 F 113 H 14 128/95 65 L 01/29/22 11:10 01/29/22 11:10 01/29/22 11:10 01/29/22 11:10 01/29/22 11:10 Narrative exam: Patient looks and feels comfortable on bedrest. Full physical exam is deferred due to acute COVID pneumonia. General appearance: no acute distress Results 01/30/22 07:05 01/30/22 07:05 CBC 01/30/22 Range/Units 07:05 WBC 13.9 H (4.5-11.0) K/mm3 RBC 2.60 L (3.65-5.03) M/mm3 Hgb 6.9 L (11.8-15.2) gm/dl Hct 21.5 L (35.5-45.6) % Plt Count 309 (140-440) K/mm3 Comprehensive Metabolic Panel 01/30/22 Range/Units 07:05 Sodium 139 (137-145) mmol/L Potassium 3.8 (3.6-5.0) mmol/L Chloride 98.5 (98-107) mmol/L Carbon Dioxide 29 D (22-30) mmol/L BUN 31 H (9-20) mg/dL Creatinine 1.1 (0.8-1.3) mg/dL Glucose 85 (75-100) mg/dL Calcium 7.9 L (8.4-10.2) mg/dL EKG interpretations - Telemetry EKG Rhythm: Sinus Rhythm (With early repolarization changes, no acute ischemic changes) Assessment and Plan - Patient Problems (1) Shortness of breath Current Visit: Yes Status: Acute Plan to address problem: Patient presented with shortness of breath, chest x-ray consistent with acute bilateral pneumonia, COVID-19 is positive. There is no clinical or x-ray indication of heart failure. An echocardiogram was ordered by the medical service, which will be reported on, otherwise no further cardiac work-up. We will follow on a as needed basis.
[2022-01-30 16:54] LABS: Alanine Aminotransferase 29 units/L (7-56); BUN/Creatinine Ratio 27; Blood Urea Nitrogen 30 mg/dL (9-20); Calcium 7.5 mg/dL (8.4-10.2); Hemolysis Index 0
[2022-01-30] MEDS: dexAMETHasone 4 MG/ML VIAL IV SCH (17:25)
[2022-01-30] MEDS: cefTRIAXone/NS 1 GM/50 ML 1 GM/50 ML BAG IV SCH (17:26)
[2022-01-30] MEDS: AZITHROMYCIN/NS 500 MG/250 ML 500 MG/250 ML BAG IV SCH (17:28)
[2022-01-30] MEDS: SODIUM CHLORIDE 0.9% 50 ML IVPB IV SCH (17:29)
[2022-01-30] MEDS: ENOXAPARIN 40 MG/0.4 ML INJ SUB-Q SCH (21:59)
[2022-01-31 05:58] LABS: Alanine Aminotransferase 33 units/L (7-56); Albumin 3.1 g/dL (3.9-5); BUN/Creatinine Ratio 29; Blood Urea Nitrogen 26 mg/dL (9-20); Calcium 7.8 mg/dL (8.4-10.2); Hemolysis Index 22
[2022-01-31 07:07] LABS: Hematocrit 22.7 % (35.5-45.6); Hemoglobin 7.4 gm/dl (11.8-15.2); Mean Corpuscular HGB Conc 33 % (32-34); Mean Corpuscular Volume 82 fl (84-94); Platelet Count 238 K/mm3 (140-440); Red Blood Count 2.76 M/mm3 (3.65-5.03)
[2022-01-31 08:45] LABS: Basophils % (Manual) 0 % (0.0-1.8); Eosinophils % (Manual) 0 % (0.0-4.3); Monocytes % (Manual) 0 % (0.0-7.3); Total Cells Counted 100
[2022-01-31 08:46] LABS: Anisocytosis 1+; Large Platelets Few; Platelet Estimate Consistent w Auto
[2022-01-31] MEDS: dexAMETHasone 4 MG/ML VIAL IV SCH (09:58)
[2022-01-31] MEDS ORDERED: VALSARTAN 40 MG TAB PO SCH (10:00)
[2022-01-31 11:05] LABS: C-Reactive Protein 5.2 mg/dL (0.00-1.30)
[2022-01-31] MEDS ORDERED: FUROSEMIDE 20 MG/2 ML INJ IV ONE (12:32)
--- NOTE | 2022-01-31 12:34 | Consultation ---
History of Present Illness Consult date: 01/31/22 Requesting physician: BRIDGET OTERO Reason for consult: hypoxemia, abnormal CXR/CT, other (COVID) History of present illness: 66 y/o male with acute respiratory failure, found to be COVID positive. Did echo yesterday which showed depressed EF of 40%. CT consistent with pumlonary edema. Currently on 4 liters NC and good sats. Past History Past Medical History: No medical history, heart failure Past Surgical History: No surgical history Social history: no significant social history Medications and Allergies Allergies Allergy/AdvReac Type Severity Reaction Status Date / Time No Known Allergies Allergy Unverified 01/29/22 12:29 Home Medications Medication Instructions Recorded Confirmed Last Taken Type No Known Home Medications [No 01/30/22 01/30/22 Unknown History Reported Home Medications] Active Meds: Active Medications Acetaminophen (Acetaminophen 325 Mg Tab) 650 mg PO Q4H PRN PRN Reason: Pain MILD(1-3)/Fever >100.5/STACY Carvedilol (Carvedilol 3.125 Mg Tab) 3.125 mg PO BID [facility] Dexamethasone (Dexamethasone 4 Mg/Ml Vial) 6 mg IV Q24HR [facility] Stop: 02/09/22 13:59 Last Admin: 01/31/22 09:58 Dose: 6 mg Enoxaparin Sodium (Enoxaparin 40 Mg/0.4 Ml Inj) 40 mg SUB-Q QDAY@2200 GARRETT; Protocol Last Admin: 01/30/22 21:59 Dose: 40 mg Hydralazine HCl (Hydralazine 20 Mg/1 Ml Inj) 10 mg IV Q3H PRN PRN Reason: Blood Pressure Last Admin: 01/29/22 19:54 Dose: 10 mg Azithromycin (Zithromax/Ns) 500 mg in 250 mls @ 250 mls/hr IV Q24H [facility] Stop: 02/04/22 12:59 Last Admin: 01/30/22 17:28 Dose: 250 mls/hr Ceftriaxone Sodium (Rocephin/Ns 1 Gm/50 Ml) 1 gm in 50 mls @ 100 mls/hr IV Q24H [facility]; Protocol Stop: 02/04/22 12:59 Last Admin: 01/30/22 17:26 Dose: 100 mls/hr Remdesivir 100 mg/ Sodium (Chloride) 250 mls @ 500 mls/hr IV Q24HR@1400 [facility] Stop: 02/03/22 14:29 Lisinopril (Lisinopril 5 Mg Tab) 5 mg PO QDAY [facility] Ondansetron HCl (Ondansetron 4 Mg/2 Ml Inj) 4 mg IV Q8H PRN PRN Reason: Nausea And Vomiting Last Admin: 01/30/22 18:22 Dose: 4 mg Sodium Chloride (Sodium Chloride 0.9% 10 Ml Flush Syringe) 10 ml IV BID [facility] Last Admin: 01/31/22 09:58 Dose: 10 ml Sodium Chloride (Sodium Chloride 0.9% 10 Ml Flush Syringe) 10 ml IV PRN PRN PRN Reason: LINE FLUSH Sodium Chloride (Sodium Chloride 0.9% 50 Ml Ivpb) 50 ml IV Q24HR@1400 [facility] Stop: 02/03/22 14:01 Last Admin: 01/30/22 17:29 Dose: 50 ml Review of Systems All systems: negative Physical Examination Vital signs: Vital Signs Temp Pulse Resp BP Pulse Ox 98.2 F 113 H 14 128/95 65 L 01/29/22 11:10 01/29/22 11:10 01/29/22 11:10 01/29/22 11:10 01/29/22 11:10 Deferred, I have no N95 presently General appearance: no acute distress Eyes: non-icteric ENT: oropharynx moist Ascultation: Bilateral: rales Results - Laboratory Findings CBC and BMP: 01/31/22 05:05 01/31/22 05:05 ABG ABG pH 7.416 pH Units (7.350-7.450) 01/29/22 14:35 ABG pCO2 35.7 mm Hg 01/29/22 14:35 ABG pO2 134.7 mm Hg (80.0-90.0) H 01/29/22 14:35 ABG O2 Saturation 98.7 % (95.0-99.0) 01/29/22 14:35 PT/INR, D-dimer PT 13.8 Sec. (12.2-14.9) 01/29/22 13:18 INR 0.96 (0.87-1.13) 01/29/22 13:18 D-Dimer 1528.40 ng/mlDDU (0-234) H 01/31/22 10:20 Abnormal lab findings: Abnormal Labs 01/29/22 01/29/22 01/29/22 11:27 11:27 11:27 WBC 13.8 H RBC 2.66 L Hgb 7.1 L Hct 22.3 L MCV MCH 27 L RDW 17.7 H Seg Neuts % (Manual) Lymphocytes % (Manual) Nucleated RBC % Seg Neutrophils # Man Lymphocytes # (Manual) D-Dimer 360.74 H ABG pO2 ABG Hemoglobin Sodium 134 L Chloride 96.1 L Carbon Dioxide 17 L BUN 33 H Glucose Calcium Iron AST 45 H Lactate Dehydrogenase Troponin T C-Reactive Protein NT-Pro-B Natriuret Pep Total Protein 5.8 L Albumin 3.8 L HDL Cholesterol Vitamin B12 SARS-CoV-2 (PCR) Crossmatch 01/29/22 01/29/22 01/29/22 11:27 13:18 14:35 WBC RBC Hgb Hct MCV MCH RDW Seg Neuts % (Manual) Lymphocytes % (Manual) Nucleated RBC % Seg Neutrophils # Man Lymphocytes # (Manual) D-Dimer ABG pO2 134.7 H ABG Hemoglobin 5.8 L Sodium Chloride Carbon Dioxide BUN Glucose Calcium Iron AST Lactate Dehydrogenase Troponin T 0.083 H C-Reactive Protein NT-Pro-B Natriuret Pep 72707 H Total Protein Albumin HDL Cholesterol 67 H Vitamin B12 SARS-CoV-2 (PCR) Crossmatch See Detail 01/29/22 01/29/22 01/29/22 15:25 18:54 18:54 WBC RBC Hgb Hct MCV MCH RDW Seg Neuts % (Manual) Lymphocytes % (Manual) Nucleated RBC % Seg Neutrophils # Man Lymphocytes # (Manual) D-Dimer ABG pO2 ABG Hemoglobin Sodium Chloride Carbon Dioxide BUN Glucose Calcium Iron 10 L AST Lactate Dehydrogenase Troponin T 0.082 H C-Reactive Protein NT-Pro-B Natriuret Pep Total Protein Albumin HDL Cholesterol Vitamin B12 1059 H SARS-CoV-2 (PCR) Crossmatch 01/30/22 01/30/22 01/30/22 07:05 07:05 10:35 WBC 13.9 H RBC 2.60 L Hgb 6.9 L Hct 21.5 L MCV 83 L MCH 27 L RDW 17.6 H Seg Neuts % (Manual) 94.0 H Lymphocytes % (Manual) 1.0 L Nucleated RBC % 4.0 H Seg Neutrophils # Man 13.1 H Lymphocytes # (Manual) 0.1 L D-Dimer ABG pO2 ABG Hemoglobin Sodium Chloride Carbon Dioxide BUN 31 H Glucose Calcium 7.9 L Iron AST Lactate Dehydrogenase Troponin T C-Reactive Protein NT-Pro-B Natriuret Pep Total Protein Albumin HDL Cholesterol Vitamin B12 SARS-CoV-2 (PCR) Positive A Crossmatch 01/30/22 01/31/22 01/31/22 14:42 05:05 05:05 WBC RBC 2.76 L Hgb 7.4 L Hct 22.7 L MCV 82 L MCH 27 L RDW 18.0 H Seg Neuts % (Manual) 98.0 H Lymphocytes % (Manual) 2.0 L Nucleated RBC % 4.0 H Seg Neutrophils # Man 8.4 H Lymphocytes # (Manual) 0.2 L D-Dimer ABG pO2 ABG Hemoglobin Sodium 136 L 135 L Chloride 97.0 L 97.4 L Carbon Dioxide BUN 30 H 26 H Glucose 73 L 123 H Calcium 7.5 L 7.8 L Iron AST 41 H Lactate Dehydrogenase Troponin T C-Reactive Protein NT-Pro-B Natriuret Pep Total Protein 4.7 L 4.8 L Albumin 3.0 L 3.1 L HDL Cholesterol Vitamin B12 SARS-CoV-2 (PCR) Crossmatch 01/31/22 01/31/22 10:20 10:20 WBC RBC Hgb Hct MCV MCH RDW Seg Neuts % (Manual) Lymphocytes % (Manual) Nucleated RBC % Seg Neutrophils # Man Lymphocytes # (Manual) D-Dimer 1528.40 H ABG pO2 ABG Hemoglobin Sodium Chloride Carbon Dioxide BUN Glucose Calcium Iron AST Lactate Dehydrogenase 322 H Troponin T C-Reactive Protein 5.20 H NT-Pro-B Natriuret Pep Total Protein Albumin HDL Cholesterol Vitamin B12 SARS-CoV-2 (PCR) Crossmatch - Diagnostic Findings Chest x-ray: image reviewed CT scan - chest: image reviewed Assessment and Plan 66 y/o male with acute respiratory failure, COVID positive and new diagnosis of systolic CHF 1. Infiltrates on CT most likely edema, gave another dose of lasix today but only did 20 IV 2. STable on 4 liters, refused bipap last night but did not need it. Keep order but for PRN uses only 3. Agree with steroids. Hopeful ID will agree with Remdesivir but majority of respiratory distress could have been from volume overload 4. Check CRP 5. Appears stable enough for transfer back to [facility]/surge
[2022-01-31] MEDS: cefTRIAXone/NS 1 GM/50 ML 1 GM/50 ML BAG IV SCH (13:58)
[2022-01-31] MEDS: AZITHROMYCIN/NS 500 MG/250 ML 500 MG/250 ML BAG IV SCH (13:58)
[2022-01-31] MEDS: SODIUM CHLORIDE 0.9% 50 ML IVPB IV SCH (13:59)
[2022-01-31] MEDS: REMDESIVIR 100 MG in SODIUM CHLORIDE 0.9% 250ML 250 ML IV SCH (14:17)
--- NOTE | 2022-01-31 15:57 | Progress Note ---
Assessment and Plan - Patient Problems (1) Shortness of breath Current Visit: Yes Status: Acute Plan to address problem: Patient presented with shortness of breath, chest x-ray consistent with acute bilateral pneumonia, COVID-19 is positive. There is no clinical or x-ray indication of heart failure. Echocardiogram shows mild left ventricular systolic dysfunction, ejection fraction 40 to 45%, concentric left ventricle hypertrophy and aortic valve sclerosis. Subjective Date of service: 01/31/22 Principal diagnosis: COVID-19 pneumonia Interval history: Patient is comfortable, no cardiac complaints. On monitoring analyst, there is a stable sinus rhythm. Echocardiogram showed mild left ventricular systolic dysfunction with ejection fraction of 40 to 45%, concentric left ventricular hypertrophy and aortic valve sclerosis. Objective Vital Signs Temp Pulse Pulse Resp BP Pulse Ox 01/31/22 15:00 68 21 132/80 98 01/31/22 14:00 66 18 127/77 94 01/31/22 13:00 69 18 115/73 95 01/31/22 12:00 98.9 F 61 61 18 115/73 93 01/31/22 11:00 69 13 97/76 94 01/31/22 10:16 94 01/31/22 10:00 69 21 120/74 94 01/31/22 09:58 75 119/65 01/31/22 09:00 66 21 119/65 87 01/31/22 08:00 99 F 67 67 16 110/61 94 01/31/22 07:00 64 14 108/65 97 01/31/22 06:00 68 21 121/75 93 01/31/22 05:01 66 16 122/82 95 01/31/22 04:00 98.7 F 60 70 16 110/65 89 01/31/22 03:00 61 106/60 88 01/31/22 02:43 63 16 90 01/31/22 02:00 70 103/64 92 01/31/22 01:01 72 24 101/76 86 01/31/22 00:00 97.8 F 63 14 94/53 93 01/30/22 23:00 67 22 107/62 92 01/30/22 22:00 66 19 104/68 99 01/30/22 21:00 66 12 102/59 94 01/30/22 20:58 96 01/30/22 20:00 99 F 66 15 98/69 85 01/30/22 19:01 67 14 106/63 90 01/30/22 18:00 73 25 H 122/80 94 01/30/22 17:00 67 22 128/68 87 01/30/22 16:30 78 14 95 01/30/22 16:04 71 25 H 95 - Physical Examination Narrative exam: Patient looks and feels comfortable on bedrest. Full physical exam is deferred due to acute COVID pneumonia. - Labs and Meds Cardiac Enzymes 01/30/22 01/31/22 01/31/22 Range/Units 14:42 05:05 10:20 AST 35 41 H (5-40) units/L Lactate Dehydrogenase 322 H (91-180) units/L CBC 01/31/22 Range/Units 05:05 WBC 8.6 (4.5-11.0) K/mm3 RBC 2.76 L (3.65-5.03) M/mm3 Hgb 7.4 L (11.8-15.2) gm/dl Hct 22.7 L (35.5-45.6) % Plt Count 238 (140-440) K/mm3 Comprehensive Metabolic Panel 01/30/22 01/31/22 Range/Units 14:42 05:05 Sodium 136 L 135 L (137-145) mmol/L Potassium 3.6 4.2 (3.6-5.0) mmol/L Chloride 97.0 L 97.4 L (98-107) mmol/L Carbon Dioxide 29 30 (22-30) mmol/L BUN 30 H 26 H (9-20) mg/dL Creatinine 1.1 0.9 (0.8-1.3) mg/dL Glucose 73 L 123 H (75-100) mg/dL Calcium 7.5 L 7.8 L (8.4-10.2) mg/dL AST 35 41 H (5-40) units/L ALT 29 33 (7-56) units/L Alkaline Phosphatase 89 89 (35-129) units/L Total Protein 4.7 L 4.8 L (6.3-8.2) g/dL Albumin 3.0 L 3.1 L (3.9-5) g/dL
--- NOTE | 2022-01-31 18:35 | Progress Note ---
Assessment and Plan Assessment and plan: This is a 66-year-old male with no known medical history admitted with COVID-19 pneumonia Neuro: NAD -Reorientation as needed -Maintain sleep-wake cycle -As needed analgesia Cardiac: Hypertensive emergency, HFrEF, NSTEMI type II -Cardiology consulted, appreciate recommendations -Echocardiogram shows mild left ventricular systolic dysfunction, ejection fraction 40 to 45%, concentric LVH with aortic valve sclerosis -Decrease in Coreg, discontinue valsartan -S/p 40 mg Lasix IV on 01/30, 20 mg IV Lasix on 01/31 -Blood pressure monitoring per protocol -Admit proBNP 22 390 -Hydralazine as needed -Troponin 0.083, 0.082 Respiratory: Acute hypoxic respiratory failure -CCM consulted, appreciate recommendations -Currently on 4 L nasal cannula -SPO2 monitor per protocol -Pulmonary hygiene GI: Moderate protein calorie malnutrition -24 hours +1070 mL -PPI -Cardiac diet -BR: Colace : NAD -Monitor intake and output -Renally dose medications -Avoid nephrotoxic medications -trend BMP ID: COVID-19 infection -Infectious disease consulted, appreciate recommendation -COVID-19 PCR positive -Procalcitonin 0.48, CRP 5.20 -Remdesivir 01/30-02/03 -Antibiotic therapy with Rocephin and Zithromax -Decadron -Contact/droplet precautions -f/u blood culture -Monitor WBC and temperature curve -Trend CMP while on remdesivir -Anticoagulation per protocol -Prone as tolerated Endo: NAD -Avoid hypoglycemia Heme: Elevated D-dimer, anemia -S/p 1 unit PRBC -Iron PO -Bilateral lower extremity Doppler ultrasound pending -Trend CBC -Transfuse hemoglobin less than 7 -SCDs to BLE while in bed The high probability of a clinically significant, sudden or life threatening deterioration of the [resp/id] system(s) required my full and direct attention, intervention and personal management. The aggregate critical care time was [60] minutes. This time is in addition to time spent performing reported procedures but includes the following: [x] Data Review and interpretation [x] Patient assessment and monitoring of vital signs [x] Documentation [x] Medication orders and management Disposition Plan: transfer to floor Total Time Spent with Patient (Minutes): 60 History Interval history: This is is a 66-year-old male with no known medical history but is a current marijuana smoker who presented to the emergency department on 01/29 by family with complaints of 2 to 3-day history of shortness of breath and severe fatigue. In the emergency department patient was tachycardic, tachypneic and hypertensive. In the emergency department patient was started on antibiotics, started on CPAP given respiratory distress, CXR showed suspected bilateral pneumonia versus edema with mild enlargement of cardiac silhouette, CTA chest showed no evidence of pulmonary embolism, borderline heart size, diffuse bilateral interstitial opacities concerning for pulmonary edema or atypical pneumonia and echocardiogram was completed. Patient was admitted to the hospitalist service with consults to cardiology as a COVID-19 PUI, hypertensive emergency and acute exacerbation of CHF with NSTEMI and anemia. Hospital Course: 01/30: Doubt CHF as primary etiology of symptoms. Patient comfortably but is requiring bipap currently. patient appears to have atypical pneumonia consistent with viral pattern in covid pna. Coronavirus pcr pending. Initiated CAP coverage with azithro/rocephin IV. Pulmonary consultation placed. Doubt NSTEMI, d/c heparin gtt. troponin elevation likely type 2 IN. CTA Chest appears to be point more to pna vs chf. Hold Lasix for now due to low blood pressure. Patient appeared euvolemic on exam. Will await ECHO to eval wall motion/function. Will follow for cardiology input. Transfer to [facility] for closer monitoring. 01/31: Patient was never started on CPAP while in IMCU and remained on nasal cannula. Patient COVID-19 PCR was positive. Currently on Rocephin, azithromycin, Decadron and remdesivir. Valsartan dose was decreased but eventually discontinued and Coreg dose was decreased due to borderline blood pressures. Hospitalist Physical - Constitutional Vitals: Temp Pulse Resp BP Pulse Ox 98.8 F 78 26 H 138/97 94 01/31/22 16:00 01/31/22 17:00 01/31/22 17:00 01/31/22 17:00 01/31/22 17:00 General appearance: Present: no acute distress - EENT Eyes: Present: PERRL, EOM intact ENT: poor dentition - Neck Neck: Present: normal ROM - Respiratory Respiratory effort: normal Respiratory: bilateral: diminished - Cardiovascular Rhythm: regular Heart Sounds: Present: S1 & S2. Absent: systolic murmur, diastolic murmur - Extremities Extremities: no ischemia, pulses intact, pulses symmetrical, No edema, normal temperature, normal color, Full ROM Peripheral Pulses: within normal limits - Abdominal General gastrointestinal: soft, non-tender, non-distended, normal bowel sounds - Integumentary Integumentary: Present: warm, dry - Psychiatric Psychiatric: cooperative - Neurologic Neurologic: CNII-XII intact, no focal deficits, moves all extremities - Allied Health Allied health notes reviewed: nursing, RT HEART Score - HEART Score Age: 45-65 Troponin: Troponin T 0.082 ng/mL (0.00-0.029) H 01/29/22 15:25 Results - Labs CBC & Chem 7: 01/31/22 05:05 01/31/22 05:05 Labs: Laboratory Last Values WBC 8.6 K/mm3 (4.5-11.0) 01/31/22 05:05 RBC 2.76 M/mm3 (3.65-5.03) L 01/31/22 05:05 Hgb 7.4 gm/dl (11.8-15.2) L 01/31/22 05:05 Hct 22.7 % (35.5-45.6) L 01/31/22 05:05 MCV 82 fl (84-94) L 01/31/22 05:05 MCH 27 pg (28-32) L 01/31/22 05:05 MCHC 33 % (32-34) 01/31/22 05:05 RDW 18.0 % (13.2-15.2) H 01/31/22 05:05 Plt Count 238 K/mm3 (140-440) 01/31/22 05:05 Add Manual Diff Complete 01/31/22 05:05 Total Counted 100 01/31/22 05:05 Seg Neutrophils % Beam Dyer Recessed Vat 01/31/22 05:05 Seg Neuts % (Manual) 98.0 % (40.0-70.0) H 01/31/22 05:05 Band Neutrophils % 0 % 01/31/22 05:05 Lymphocytes % (Manual) 2.0 % (13.4-35.0) L 01/31/22 05:05 Reactive Lymphs % (Man) 0 % 01/31/22 05:05 Monocytes % (Manual) 0 % (0.0-7.3) 01/31/22 05:05 Eosinophils % (Manual) 0 % (0.0-4.3) 01/31/22 05:05 Basophils % (Manual) 0 % (0.0-1.8) 01/31/22 05:05 Metamyelocytes % 0 % 01/31/22 05:05 Myelocytes % 0 % 01/31/22 05:05 Promyelocytes % 0 % 01/31/22 05:05 Blast Cells % 0 % 01/31/22 05:05 Nucleated RBC % 4.0 % (0.0-0.9) H 01/31/22 05:05 Seg Neutrophils # Man 8.4 K/mm3 (1.8-7.7) H 01/31/22 05:05 Band Neutrophils # 0.0 K/mm3 01/31/22 05:05 Lymphocytes # (Manual) 0.2 K/mm3 (1.2-5.4) L 01/31/22 05:05 Abs React Lymphs (Man) 0.0 K/mm3 01/31/22 05:05 Monocytes # (Manual) 0.0 K/mm3 (0.0-0.8) 01/31/22 05:05 Eosinophils # (Manual) 0.0 K/mm3 (0.0-0.4) 01/31/22 05:05 Basophils # (Manual) 0.0 K/mm3 (0.0-0.1) 01/31/22 05:05 Metamyelocytes # 0.0 K/mm3 01/31/22 05:05 Myelocytes # 0.0 K/mm3 01/31/22 05:05 Promyelocytes # 0.0 K/mm3 01/31/22 05:05 Blast Cells # 0.0 K/mm3 01/31/22 05:05 WBC Morphology Not Reportable 01/31/22 05:05 Hypersegmented Neuts Not Reportable 01/31/22 05:05 Hyposegmented Neuts Not Reportable 01/31/22 05:05 Hypogranular Neuts Not Reportable 01/31/22 05:05 Smudge Cells Not Reportable 01/31/22 05:05 Toxic Granulation Not Reportable 01/31/22 05:05 Toxic Vacuolation Not Reportable 01/31/22 05:05 Dohle Bodies Not Reportable 01/31/22 05:05 Pelger-Huet Anomaly Not Reportable 01/31/22 05:05 Idalia Rods Not Reportable 01/31/22 05:05 Platelet Estimate Consistent w auto 01/31/22 05:05 Clumped Platelets Not Reportable 01/31/22 05:05 Plt Clumps, EDTA Not Reportable 01/31/22 05:05 Large Platelets Few 01/31/22 05:05 Giant Platelets Not Reportable 01/31/22 05:05 Platelet Satelliting Not Reportable 01/31/22 05:05 Plt Morphology Comment Not Reportable 01/31/22 05:05 RBC Morphology Not Reportable 01/31/22 05:05 Dimorphic RBCs Not Reportable 01/31/22 05:05 Polychromasia Not Reportable 01/31/22 05:05 Hypochromasia Not Reportable 01/31/22 05:05 Poikilocytosis Not Reportable 01/31/22 05:05 Anisocytosis 1+ 01/31/22 05:05 Microcytosis Not Reportable 01/31/22 05:05 Macrocytosis Not Reportable 01/31/22 05:05 Spherocytes Not Reportable 01/31/22 05:05 Pappenheimer Bodies Not Reportable 01/31/22 05:05 Sickle Cells Not Reportable 01/31/22 05:05 Target Cells Not Reportable 01/31/22 05:05 Tear Drop Cells Not Reportable 01/31/22 05:05 Ovalocytes Not Reportable 01/31/22 05:05 Helmet Cells Not Reportable 01/31/22 05:05 Buck-Bosworth Bodies Not Reportable 01/31/22 05:05 Jennings Rings Not Reportable 01/31/22 05:05 Mag Cells Not Reportable 01/31/22 05:05 Bite Cells Not Reportable 01/31/22 05:05 Crenated Cell Not Reportable 01/31/22 05:05 Elliptocytes Not Reportable 01/31/22 05:05 Acanthocytes (Spur) Not Reportable 01/31/22 05:05 Rouleaux Not Reportable 01/31/22 05:05 Hemoglobin C Crystals Not Reportable 01/31/22 05:05 Schistocytes Not Reportable 01/31/22 05:05 Malaria parasites Not Reportable 01/31/22 05:05 Benji Bodies Not Reportable 01/31/22 05:05 Hem Pathologist Commnt No 01/31/22 05:05 PT 13.8 Sec. (12.2-14.9) 01/29/22 13:18 INR 0.96 (0.87-1.13) 01/29/22 13:18 APTT 26.4 Sec. (24.2-36.6) 01/29/22 13:18 D-Dimer 1528.40 ng/mlDDU (0-234) H 01/31/22 10:20 ABG pH 7.416 pH Units (7.350-7.450) 01/29/22 14:35 ABG pCO2 35.7 mm Hg 01/29/22 14:35 ABG pO2 134.7 mm Hg (80.0-90.0) H 01/29/22 14:35 ABG HCO3 22.4 mmol/L (20.0-26.0) 01/29/22 14:35 ABG O2 Saturation 98.7 % (95.0-99.0) 01/29/22 14:35 ABG O2 Content 8.2 (0.0-44) 01/29/22 14:35 ABG Base Excess -1.9 mmol/L (-2.0-3.0) 01/29/22 14:35 ABG Hemoglobin 5.8 gm/dl (14.0-18.0) L 01/29/22 14:35 ABG Carboxyhemoglobin 1.5 % (0.0-5.0) 01/29/22 14:35 ABG Methemoglobin 0.5 % (0.0-1.5) 01/29/22 14:35 Oxyhemoglobin 96.7 % (95.0-99.0) 01/29/22 14:35 FiO2 100 % 01/29/22 14:35 Sodium 135 mmol/L (137-145) L 01/31/22 05:05 Potassium 4.2 mmol/L (3.6-5.0) 01/31/22 05:05 Chloride 97.4 mmol/L (98-107) L 01/31/22 05:05 Carbon Dioxide 30 mmol/L (22-30) 01/31/22 05:05 Anion Gap 12 mmol/L 01/31/22 05:05 BUN 26 mg/dL (9-20) H 01/31/22 05:05 Creatinine 0.9 mg/dL (0.8-1.3) 01/31/22 05:05 Estimated GFR > 60 ml/min 01/31/22 05:05 BUN/Creatinine Ratio 29 % 01/31/22 05:05 Glucose 123 mg/dL (75-100) H 01/31/22 05:05 Calcium 7.8 mg/dL (8.4-10.2) L 01/31/22 05:05 Magnesium 2.30 mg/dL (1.7-2.3) 01/29/22 11:27 Iron Beam Dyer Recessed Vat 01/30/22 08:53 TIBC 252 mcg/dL (250-450) 01/30/22 08:53 % Saturation Not Reportable 01/30/22 08:53 Transferrin 214 mg/dl (180-329) 01/30/22 08:53 Ferritin 33.9 ng/mL (30.0-300.0) 01/31/22 05:05 Total Bilirubin 0.30 mg/dL (0.1-1.2) 01/31/22 05:05 AST 41 units/L (5-40) H 01/31/22 05:05 ALT 33 units/L (7-56) 01/31/22 05:05 Alkaline Phosphatase 89 units/L (35-129) 01/31/22 05:05 Lactate Dehydrogenase 322 units/L (91-180) H 01/31/22 10:20 Troponin T 0.082 ng/mL (0.00-0.029) H 01/29/22 15:25 C-Reactive Protein 5.20 mg/dL (0.00-1.30) H 01/31/22 10:20 NT-Pro-B Natriuret Pep 60622 pg/mL (0-900) H 01/29/22 11:27 Total Protein 4.8 g/dL (6.3-8.2) L 01/31/22 05:05 Albumin 3.1 g/dL (3.9-5) L 01/31/22 05:05 Albumin/Globulin Ratio 1.8 % 01/31/22 05:05 Triglycerides 66 mg/dL (2-149) 01/29/22 11:27 Cholesterol 183 mg/dL (50-199) 01/29/22 11:27 LDL Cholesterol Direct 106 mg/dL (50-130) 01/29/22 11:27 HDL Cholesterol 67 mg/dL (40-59) H 01/29/22 11:27 Cholesterol/HDL Ratio 2.73 % 01/29/22 11:27 Vitamin B12 1059 pg/mL (211-911) H 01/29/22 18:54 Procalcitonin 0.48 ng/mL (<0.15) 01/29/22 12:07 Urine Color Straw (Yellow) 01/29/22 15:28 Urine Turbidity Clear (Clear) 01/29/22 15:28 Specific Rice (Man) 1.005 (1.003-1.030) 01/29/22 15:28 Ur Protein (Man) Negative mg/dL (Negative) 01/29/22 15:28 Ur Ketones (Man) Negative (Negative) 01/29/22 15:28 Ur Nitrite (Man) Negative (Negative) 01/29/22 15:28 Urine Bilirubin (Man) Negative (Negative) 01/29/22 15:28 Leukocyte Esterase (Man) Negative (Negative) 01/29/22 15:28 Urine WBC (Auto) < 1.0 /HPF (0.0-6.0) 01/29/22 15:28 Urine RBC (Auto) 4.0 /HPF (0.0-6.0) 01/29/22 15:28 U Epithel Cells (Auto) 1.0 /HPF (0-13.0) 01/29/22 15:28 Urine Bacteria (Auto) 1+ /HPF (Negative) 01/29/22 15:28 Urine RBC (Manual) Negative (Negative) 01/29/22 15:28 Hyaline Casts 9 /LPF 01/29/22 15:28 SARS-CoV-2 (PCR) Positive (Negative) A 01/30/22 10:35 Blood Type O POSITIVE 01/29/22 13:18 Antibody Screen Negative 01/29/22 13:18 Crossmatch See Detail 01/29/22 13:18 Microbiology: Microbiology 01/29/22 13:01 Peripheral/Venous Blood Culture - Preliminary NO GROWTH AFTER 48 HOURS 01/29/22 13:01 Peripheral/Venous Blood Culture - Preliminary NO GROWTH AFTER 48 HOURS Zaldivar/IV: Voiding Method Urinal Active Medications - Current Medications Current Medications: Generic Name Dose Route Start Last Admin Trade Name Freq PRN Reason Stop Dose Admin Acetaminophen 650 mg 08/26/22 17:16 Acetaminophen 325 Mg Tab PO Q4H PRN Pain MILD(1-3)/Fever >100.5/STACY Ascorbic Acid 500 mg 02/01/22 10:00 Ascorbic Acid 500 Mg Tab PO QDAY [facility] Carvedilol 3.125 mg 01/31/22 22:00 Carvedilol 3.125 Mg Tab PO BID [facility] Dexamethasone 6 mg 01/30/22 14:00 01/31/22 09:58 Dexamethasone 4 Mg/Ml Vial IV 02/09/22 13:59 6 mg Q24HR GARRETT Administration Enoxaparin Sodium 40 mg 01/30/22 22:00 01/30/22 21:59 Enoxaparin 40 Mg/0.4 Ml Inj SUB-Q 40 mg QDAY@2200 [facility] Administration Protocol Ferrous Sulfate 325 mg 02/01/22 10:00 Ferrous Sulfate 325 Mg Tab PO QDAY [facility] Hydralazine HCl 10 mg 01/29/22 18:13 01/29/22 19:54 Hydralazine 20 Mg/1 Ml Inj IV 10 mg Q3H PRN Administration Blood Pressure Azithromycin 500 mg in 250 mls @ 250 mls/hr 01/30/22 13:00 01/31/22 13:58 Zithromax/Ns IV 02/04/22 12:59 250 mls/hr Q24H GARRETT Administration Ceftriaxone Sodium 1 gm in 50 mls @ 100 mls/hr 01/30/22 13:00 01/31/22 13:58 Rocephin/Ns 1 Gm/50 Ml IV 02/04/22 12:59 100 mls/hr Q24H GARRETT Administration Protocol Remdesivir 100 mg/ Sodium 250 mls @ 500 mls/hr 01/31/22 14:00 01/31/22 14:17 Chloride IV 02/03/22 14:29 500 mls/hr Q24HR@1400 [facility] Administration Lisinopril 5 mg 02/01/22 10:00 Lisinopril 5 Mg Tab PO QDAY [facility] Ondansetron HCl 4 mg 01/29/22 17:16 01/30/22 18:22 Ondansetron 4 Mg/2 Ml Inj IV 4 mg Q8H PRN Administration Nausea And Vomiting Sodium Chloride 10 ml 01/29/22 22:00 01/31/22 09:58 Sodium Chloride 0.9% 10 Ml Flush Syringe IV 10 ml BID GARRETT Administration Sodium Chloride 10 ml 01/29/22 17:16 Sodium Chloride 0.9% 10 Ml Flush Syringe IV PRN PRN LINE FLUSH Sodium Chloride 50 ml 01/30/22 14:00 01/31/22 13:59 Sodium Chloride 0.9% 50 Ml Ivpb IV 02/03/22 14:01 50 ml Q24HR@1400 GARRETT Administration
[2022-01-31] MEDS: carvediloL 3.125 MG TAB PO SCH (21:37)
[2022-01-31] MEDS: ENOXAPARIN 40 MG/0.4 ML INJ SUB-Q SCH (21:37)
--- NOTE | 2022-02-01 08:15 | Progress Note ---
Assessment and Plan Assessment and plan: History Interval history: This is is a 66-year-old male with no known medical history but is a current marijuana smoker who presented to the emergency department on 01/29 by family with complaints of 2 to 3-day history of shortness of breath and severe fatigue. In the emergency department patient was tachycardic, tachypneic and hypertensive. In the emergency department patient was started on antibiotics, started on CPAP given respiratory distress, CXR showed suspected bilateral pneumonia versus edema with mild enlargement of cardiac silhouette, CTA chest showed no evidence of pulmonary embolism, borderline heart size, diffuse bilateral interstitial opacities concerning for pulmonary edema or atypical pneumonia and echocardiogram was completed. Patient was admitted to the hospitalist service with consults to cardiology as a COVID-19 PUI, hypertensive emergency and acute exacerbation of CHF with NSTEMI and anemia. Hospital Course: 01/30: Doubt CHF as primary etiology of symptoms. Patient comfortably but is requiring bipap currently. patient appears to have atypical pneumonia consistent with viral pattern in covid pna. Coronavirus pcr pending. Initiated CAP coverage with azithro/rocephin IV. Pulmonary consultation placed. Doubt NSTEMI, d/c heparin gtt. troponin elevation likely type 2 VT. CTA Chest appears to be point more to pna vs chf. Hold Lasix for now due to low blood pressure. Patient appeared euvolemic on exam. Will await ECHO to eval wall motion/function. Will follow for cardiology input. Transfer to [facility] for closer monitoring. 01/31: Patient was never started on CPAP while in [facility] and remained on nasal cannula. Patient COVID-19 PCR was positive. Currently on Rocephin, azithromycin, Decadron and remdesivir. Valsartan dose was decreased but eventually discontinued and Coreg dose was decreased due to borderline blood pressures. 02/01: CXR ordered to assess pulmonary edema, reviewed definite interval improvemen. Ordered lasix 40 mg po daily. Home o2 evaluation ordered. Currently on room air satting 93%. Will follow ID recommendations regarding covid 19 viral pneumonia tx. PT assessment to asses for mobility/gait. Likely dc in next 24hrs given rapid improvement. Assessment and plan: This is a 66-year-old male with no known medical history admitted with COVID-19 pneumonia Neuro: NAD -Reorientation as needed -Maintain sleep-wake cycle -As needed analgesia Cardiac: Hypertensive emergency, HFrEF, NSTEMI type II -Cardiology consulted, appreciate recommendations -Echocardiogram shows mild left ventricular systolic dysfunction, ejection fraction 40 to 45%, concentric LVH with aortic valve sclerosis -Decrease in Coreg, discontinue valsartan -S/p 40 mg Lasix IV on 01/30, 20 mg IV Lasix on 01/31 -Blood pressure monitoring per protocol -Admit proBNP 22 390 -Hydralazine as needed -Troponin 0.083, 0.082 Respiratory: Acute hypoxic respiratory failure, community acquired pneumonia, viral pneumonia, pulmonary edema -CCM consulted, appreciate recommendations -Currently on 4 L nasal cannula -SPO2 monitor per protocol -Pulmonary hygiene GI: Moderate protein calorie malnutrition -24 hours +1070 mL -PPI -Cardiac diet -BR: Colace : NAD -Monitor intake and output -Renally dose medications -Avoid nephrotoxic medications -trend BMP ID: COVID-19 infection -Infectious disease consulted, appreciate recommendation -COVID-19 PCR positive -Procalcitonin 0.48, CRP 5.20 -Remdesivir 01/30-02/03 -Antibiotic therapy with Rocephin and Zithromax -Decadron -Contact/droplet precautions -f/u blood culture -Monitor WBC and temperature curve -Trend CMP while on remdesivir -Anticoagulation per protocol -Prone as tolerated Endo: NAD -Avoid hypoglycemia Heme: Elevated D-dimer, anemia -S/p 1 unit PRBC -Iron PO -Bilateral lower extremity Doppler ultrasound pending -Trend CBC -Transfuse hemoglobin less than 7 -SCDs to BLE while in bed #Advance care planning Disease education conducted, care plan discussed, diagnoses discussed, prognosis discussed, patient is full code, patient acknowledges understanding and agree with care plan, +30 minutes. History Interval history: Resting comfortably on my encounter. on Room air, no acute complaints this AM. Denies fevers, shortness of breath or muscle aches. No LE edema reported or visualized on encounter. Hospitalist Physical - Physical exam Narrative exam: Physical Exam: VITAL SIGNS: Reviewed. GENERAL: The patient appears normally developed, Vital signs as documented. On room air. NAD. thin elderly gentleman HEAD: No signs of head trauma. EYES: Pupils are equal. Extraocular motions intact. EARS: Hearing grossly intact. MOUTH: Oropharynx is normal. NECK: No adenopathy, no JVD. CHEST: coarse breath sounds. BL rhonchi. interval improvement in lung exam. CARDIAC: Regular rate and rhythm. S1 and S2, without murmurs, gallops, or rubs. VASCULAR: No Edema. Peripheral pulses normal and equal in all extremities. ABDOMEN: Soft, non tender and non distended. No rebound or guarding, and no masses palpated. Bowel Sounds normal. MUSCULOSKELETAL: Good range of motion of all major joints. Extremities without clubbing, cyanosis or edema. NEUROLOGIC EXAM: Alert and oriented x 4. no focal sensory or strength deficits. PSYCHIATRIC: Mood normal. SKIN: detail exam as documented in skin assessment - Constitutional Vitals: Temp Pulse Resp BP Pulse Ox 98.8 F 78 17 134/73 99 01/31/22 16:00 01/31/22 21:37 02/01/22 00:00 01/31/22 21:37 02/01/22 00:00 General appearance: Present: no acute distress HEART Score - HEART Score Age: 45-65 Troponin: Troponin T 0.082 ng/mL (0.00-0.029) H 01/29/22 15:25 Results - Labs CBC & Chem 7: 01/31/22 05:05 01/31/22 05:05 Labs: Laboratory Last Values WBC 8.6 K/mm3 (4.5-11.0) 01/31/22 05:05 RBC 2.76 M/mm3 (3.65-5.03) L 01/31/22 05:05 Hgb 7.4 gm/dl (11.8-15.2) L 01/31/22 05:05 Hct 22.7 % (35.5-45.6) L 01/31/22 05:05 MCV 82 fl (84-94) L 01/31/22 05:05 MCH 27 pg (28-32) L 01/31/22 05:05 MCHC 33 % (32-34) 01/31/22 05:05 RDW 18.0 % (13.2-15.2) H 01/31/22 05:05 Plt Count 238 K/mm3 (140-440) 01/31/22 05:05 Add Manual Diff Complete 01/31/22 05:05 Total Counted 100 01/31/22 05:05 Seg Neutrophils % Director Regulatory Compliance 01/31/22 05:05 Seg Neuts % (Manual) 98.0 % (40.0-70.0) H 01/31/22 05:05 Band Neutrophils % 0 % 01/31/22 05:05 Lymphocytes % (Manual) 2.0 % (13.4-35.0) L 01/31/22 05:05 Reactive Lymphs % (Man) 0 % 01/31/22 05:05 Monocytes % (Manual) 0 % (0.0-7.3) 01/31/22 05:05 Eosinophils % (Manual) 0 % (0.0-4.3) 01/31/22 05:05 Basophils % (Manual) 0 % (0.0-1.8) 01/31/22 05:05 Metamyelocytes % 0 % 01/31/22 05:05 Myelocytes % 0 % 01/31/22 05:05 Promyelocytes % 0 % 01/31/22 05:05 Blast Cells % 0 % 01/31/22 05:05 Nucleated RBC % 4.0 % (0.0-0.9) H 01/31/22 05:05 Seg Neutrophils # Man 8.4 K/mm3 (1.8-7.7) H 01/31/22 05:05 Band Neutrophils # 0.0 K/mm3 01/31/22 05:05 Lymphocytes # (Manual) 0.2 K/mm3 (1.2-5.4) L 01/31/22 05:05 Abs React Lymphs (Man) 0.0 K/mm3 01/31/22 05:05 Monocytes # (Manual) 0.0 K/mm3 (0.0-0.8) 01/31/22 05:05 Eosinophils # (Manual) 0.0 K/mm3 (0.0-0.4) 01/31/22 05:05 Basophils # (Manual) 0.0 K/mm3 (0.0-0.1) 01/31/22 05:05 Metamyelocytes # 0.0 K/mm3 01/31/22 05:05 Myelocytes # 0.0 K/mm3 01/31/22 05:05 Promyelocytes # 0.0 K/mm3 01/31/22 05:05 Blast Cells # 0.0 K/mm3 01/31/22 05:05 WBC Morphology Not Reportable 01/31/22 05:05 Hypersegmented Neuts Not Reportable 01/31/22 05:05 Hyposegmented Neuts Not Reportable 01/31/22 05:05 Hypogranular Neuts Not Reportable 01/31/22 05:05 Smudge Cells Not Reportable 01/31/22 05:05 Toxic Granulation Not Reportable 01/31/22 05:05 Toxic Vacuolation Not Reportable 01/31/22 05:05 Dohle Bodies Not Reportable 01/31/22 05:05 Pelger-Huet Anomaly Not Reportable 01/31/22 05:05 Idalia Rods Not Reportable 01/31/22 05:05 Platelet Estimate Consistent w auto 01/31/22 05:05 Clumped Platelets Not Reportable 01/31/22 05:05 Plt Clumps, EDTA Not Reportable 01/31/22 05:05 Large Platelets Few 01/31/22 05:05 Giant Platelets Not Reportable 01/31/22 05:05 Platelet Satelliting Not Reportable 01/31/22 05:05 Plt Morphology Comment Not Reportable 01/31/22 05:05 RBC Morphology Not Reportable 01/31/22 05:05 Dimorphic RBCs Not Reportable 01/31/22 05:05 Polychromasia Not Reportable 01/31/22 05:05 Hypochromasia Not Reportable 01/31/22 05:05 Poikilocytosis Not Reportable 01/31/22 05:05 Anisocytosis 1+ 01/31/22 05:05 Microcytosis Not Reportable 01/31/22 05:05 Macrocytosis Not Reportable 01/31/22 05:05 Spherocytes Not Reportable 01/31/22 05:05 Pappenheimer Bodies Not Reportable 01/31/22 05:05 Sickle Cells Not Reportable 01/31/22 05:05 Target Cells Not Reportable 01/31/22 05:05 Tear Drop Cells Not Reportable 01/31/22 05:05 Ovalocytes Not Reportable 01/31/22 05:05 Helmet Cells Not Reportable 01/31/22 05:05 Buck-Kellogg Bodies Not Reportable 01/31/22 05:05 [place] Rings Not Reportable 01/31/22 05:05 Mag Cells Not Reportable 01/31/22 05:05 Bite Cells Not Reportable 01/31/22 05:05 Crenated Cell Not Reportable 01/31/22 05:05 Elliptocytes Not Reportable 01/31/22 05:05 Acanthocytes (Spur) Not Reportable 01/31/22 05:05 Rouleaux Not Reportable 01/31/22 05:05 Hemoglobin C Crystals Not Reportable 01/31/22 05:05 Schistocytes Not Reportable 01/31/22 05:05 Malaria parasites Not Reportable 01/31/22 05:05 Benji Bodies Not Reportable 01/31/22 05:05 Hem Pathologist Commnt No 01/31/22 05:05 PT 13.8 Sec. (12.2-14.9) 01/29/22 13:18 INR 0.96 (0.87-1.13) 01/29/22 13:18 APTT 26.4 Sec. (24.2-36.6) 01/29/22 13:18 D-Dimer 1528.40 ng/mlDDU (0-234) H 01/31/22 10:20 ABG pH 7.416 pH Units (7.350-7.450) 01/29/22 14:35 ABG pCO2 35.7 mm Hg 01/29/22 14:35 ABG pO2 134.7 mm Hg (80.0-90.0) H 01/29/22 14:35 ABG HCO3 22.4 mmol/L (20.0-26.0) 01/29/22 14:35 ABG O2 Saturation 98.7 % (95.0-99.0) 01/29/22 14:35 ABG O2 Content 8.2 (0.0-44) 01/29/22 14:35 ABG Base Excess -1.9 mmol/L (-2.0-3.0) 01/29/22 14:35 ABG Hemoglobin 5.8 gm/dl (14.0-18.0) L 01/29/22 14:35 ABG Carboxyhemoglobin 1.5 % (0.0-5.0) 01/29/22 14:35 ABG Methemoglobin 0.5 % (0.0-1.5) 01/29/22 14:35 Oxyhemoglobin 96.7 % (95.0-99.0) 01/29/22 14:35 FiO2 100 % 01/29/22 14:35 Sodium 135 mmol/L (137-145) L 01/31/22 05:05 Potassium 4.2 mmol/L (3.6-5.0) 01/31/22 05:05 Chloride 97.4 mmol/L (98-107) L 01/31/22 05:05 Carbon Dioxide 30 mmol/L (22-30) 01/31/22 05:05 Anion Gap 12 mmol/L 01/31/22 05:05 BUN 26 mg/dL (9-20) H 01/31/22 05:05 Creatinine 0.9 mg/dL (0.8-1.3) 01/31/22 05:05 Estimated GFR > 60 ml/min 01/31/22 05:05 BUN/Creatinine Ratio 29 % 01/31/22 05:05 Glucose 123 mg/dL (75-100) H 01/31/22 05:05 Calcium 7.8 mg/dL (8.4-10.2) L 01/31/22 05:05 Magnesium 2.30 mg/dL (1.7-2.3) 01/29/22 11:27 Iron Director Regulatory Compliance 01/30/22 08:53 TIBC 252 mcg/dL (250-450) 01/30/22 08:53 % Saturation Not Reportable 01/30/22 08:53 Transferrin 214 mg/dl (180-329) 01/30/22 08:53 Ferritin 33.9 ng/mL (30.0-300.0) 01/31/22 05:05 Total Bilirubin 0.30 mg/dL (0.1-1.2) 01/31/22 05:05 AST 41 units/L (5-40) H 01/31/22 05:05 ALT 33 units/L (7-56) 01/31/22 05:05 Alkaline Phosphatase 89 units/L (35-129) 01/31/22 05:05 Lactate Dehydrogenase 322 units/L (91-180) H 01/31/22 10:20 Troponin T 0.082 ng/mL (0.00-0.029) H 01/29/22 15:25 C-Reactive Protein 5.20 mg/dL (0.00-1.30) H 01/31/22 10:20 NT-Pro-B Natriuret Pep 17095 pg/mL (0-900) H 01/29/22 11:27 Total Protein 4.8 g/dL (6.3-8.2) L 01/31/22 05:05 Albumin 3.1 g/dL (3.9-5) L 01/31/22 05:05 Albumin/Globulin Ratio 1.8 % 01/31/22 05:05 Triglycerides 66 mg/dL (2-149) 01/29/22 11:27 Cholesterol 183 mg/dL (50-199) 01/29/22 11:27 LDL Cholesterol Direct 106 mg/dL (50-130) 01/29/22 11:27 HDL Cholesterol 67 mg/dL (40-59) H 01/29/22 11:27 Cholesterol/HDL Ratio 2.73 % 01/29/22 11:27 Vitamin B12 1059 pg/mL (211-911) H 01/29/22 18:54 Procalcitonin 0.48 ng/mL (<0.15) 01/29/22 12:07 Urine Color Straw (Yellow) 01/29/22 15:28 Urine Turbidity Clear (Clear) 01/29/22 15:28 Specific [place] (Man) 1.005 (1.003-1.030) 01/29/22 15:28 Ur Protein (Man) Negative mg/dL (Negative) 01/29/22 15:28 Ur Ketones (Man) Negative (Negative) 01/29/22 15:28 Ur Nitrite (Man) Negative (Negative) 01/29/22 15:28 Urine Bilirubin (Man) Negative (Negative) 01/29/22 15:28 Leukocyte Esterase (Man) Negative (Negative) 01/29/22 15:28 Urine WBC (Auto) < 1.0 /HPF (0.0-6.0) 01/29/22 15:28 Urine RBC (Auto) 4.0 /HPF (0.0-6.0) 01/29/22 15:28 U Epithel Cells (Auto) 1.0 /HPF (0-13.0) 01/29/22 15:28 Urine Bacteria (Auto) 1+ /HPF (Negative) 01/29/22 15:28 Urine RBC (Manual) Negative (Negative) 01/29/22 15:28 Hyaline Casts 9 /LPF 01/29/22 15:28 SARS-CoV-2 (PCR) Positive (Negative) A 01/30/22 10:35 Blood Type O POSITIVE 01/29/22 13:18 Antibody Screen Negative 01/29/22 13:18 Crossmatch See Detail 01/29/22 13:18 Microbiology: Microbiology 01/29/22 13:01 Peripheral/Venous Blood Culture - Preliminary NO GROWTH AFTER 48 HOURS 01/29/22 13:01 Peripheral/Venous Blood Culture - Preliminary NO GROWTH AFTER 48 HOURS Zaldivar/IV: Voiding Method Urinal Active Medications - Current Medications Current Medications: Generic Name Dose Route Start Last Admin Trade Name Freq PRN Reason Stop Dose Admin Acetaminophen 650 mg 01/29/22 17:16 Acetaminophen 325 Mg Tab PO Q4H PRN Pain MILD(1-3)/Fever >100.5/STACY Ascorbic Acid 500 mg 02/01/22 10:00 Ascorbic Acid 500 Mg Tab PO QDAY GARRETT Carvedilol 3.125 mg 01/31/22 22:00 01/31/22 21:37 Carvedilol 3.125 Mg Tab PO 3.125 mg BID GARRETT Administration Dexamethasone 6 mg 01/30/22 14:00 01/31/22 09:58 Dexamethasone 4 Mg/Ml Vial IV 02/09/22 13:59 6 mg Q24HR GARRETT Administration Enoxaparin Sodium 40 mg 01/30/22 22:00 01/31/22 21:37 Enoxaparin 40 Mg/0.4 Ml Inj SUB-Q 40 mg QDAY@2200 [facility] Administration Protocol Ferrous Sulfate 325 mg 02/01/22 10:00 Ferrous Sulfate 325 Mg Tab PO QDAY GARRETT Hydralazine HCl 10 mg 01/29/22 18:13 01/29/22 19:54 Hydralazine 20 Mg/1 Ml Inj IV 10 mg Q3H PRN Administration Blood Pressure Azithromycin 500 mg in 250 mls @ 250 mls/hr 01/30/22 13:00 01/31/22 13:58 Zithromax/Ns IV 02/04/22 12:59 250 mls/hr Q24H GARRETT Administration Ceftriaxone Sodium 1 gm in 50 mls @ 100 mls/hr 01/30/22 13:00 01/31/22 13:58 Rocephin/Ns 1 Gm/50 Ml IV 02/04/22 12:59 100 mls/hr Q24H GARRETT Administration Protocol Remdesivir 100 mg/ Sodium 250 mls @ 500 mls/hr 01/31/22 14:00 01/31/22 14:17 Chloride IV 02/03/22 14:29 500 mls/hr Q24HR@1400 GARRETT Administration Lisinopril 5 mg 02/01/22 10:00 Lisinopril 5 Mg Tab PO QDAY GARRETT Ondansetron HCl 4 mg 01/29/22 17:16 01/30/22 18:22 Ondansetron 4 Mg/2 Ml Inj IV 4 mg Q8H PRN Administration Nausea And Vomiting Sodium Chloride 10 ml 01/29/22 22:00 01/31/22 21:37 Sodium Chloride 0.9% 10 Ml Flush Syringe IV 10 ml BID GARRETT Administration Sodium Chloride 10 ml 01/29/22 17:16 Sodium Chloride 0.9% 10 Ml Flush Syringe IV PRN PRN LINE FLUSH Sodium Chloride 50 ml 01/30/22 14:00 01/31/22 13:59 Sodium Chloride 0.9% 50 Ml Ivpb IV 02/03/22 14:01 50 ml Q24HR@1400 GARRETT Administration
--- NOTE | 2022-02-01 10:07 | Consultation ---
History of Present Illness - Reason for Consult Consult date: 02/01/22 COVID-19 Requesting physician: BRIDGET OTERO - History of Present Illness The patient is a 66-year-old male with no significant medical history was admitted to the hospital with shortness of breath, fatigue. Upon evaluation in the ED, noted to be tachycardic, tachypneic, chest x-ray showed bilateral pneumonia versus CHF. Labs showed WBC 13.8, D-dimer 360, elevated proBNP, troponin 0.08, procalcitonin 0.48, CRP 5.2. Tested positive for COVID-19. Infectious diseases was consulted for additional evaluation. Has otherwise been afebrile. Initially required BiPAP, then gradually weaned to nasal cannula and now to room air. Repeat chest x-ray today showing interval improvement. Review of Systems: reviewed in the chart, unable to obtain, minimize risk of transmission Past History Past Medical History: No medical history, heart failure Past Surgical History: No surgical history Social history: no significant social history Medications and Allergies Allergies Allergy/AdvReac Type Severity Reaction Status Date / Time No Known Allergies Allergy Unverified 01/29/22 12:29 Home Medications Medication Instructions Recorded Confirmed Last Taken Type No Known Home Medications [No 01/30/22 01/30/22 Unknown History Reported Home Medications] Active Meds: Active Medications Acetaminophen (Acetaminophen 325 Mg Tab) 650 mg PO Q4H PRN PRN Reason: Pain MILD(1-3)/Fever >100.5/STACY Ascorbic Acid (Ascorbic Acid 500 Mg Tab) 500 mg PO QDAY [facility] Carvedilol (Carvedilol 3.125 Mg Tab) 3.125 mg PO BID [facility] Last Admin: 01/31/22 21:37 Dose: 3.125 mg Dexamethasone (Dexamethasone 4 Mg/Ml Vial) 6 mg IV Q24HR GARRETT Stop: 02/09/22 13:59 Last Admin: 01/31/22 09:58 Dose: 6 mg Enoxaparin Sodium (Enoxaparin 40 Mg/0.4 Ml Inj) 40 mg SUB-Q QDAY@2200 GARRETT; Protocol Last Admin: 01/31/22 21:37 Dose: 40 mg Ferrous Sulfate (Ferrous Sulfate 325 Mg Tab) 325 mg PO QDAY [facility] Hydralazine HCl (Hydralazine 20 Mg/1 Ml Inj) 10 mg IV Q3H PRN PRN Reason: Blood Pressure Last Admin: 01/29/22 19:54 Dose: 10 mg Azithromycin (Zithromax/Ns) 500 mg in 250 mls @ 250 mls/hr IV Q24H [facility] Stop: 02/04/22 12:59 Last Admin: 01/31/22 13:58 Dose: 250 mls/hr Ceftriaxone Sodium (Rocephin/Ns 1 Gm/50 Ml) 1 gm in 50 mls @ 100 mls/hr IV Q24H [facility]; Protocol Stop: 02/04/22 12:59 Last Admin: 01/31/22 13:58 Dose: 100 mls/hr Remdesivir 100 mg/ Sodium (Chloride) 250 mls @ 500 mls/hr IV Q24HR@1400 [facility] Stop: 02/03/22 14:29 Last Admin: 01/31/22 14:17 Dose: 500 mls/hr Lisinopril (Lisinopril 5 Mg Tab) 5 mg PO QDAY GARRETT Ondansetron HCl (Ondansetron 4 Mg/2 Ml Inj) 4 mg IV Q8H PRN PRN Reason: Nausea And Vomiting Last Admin: 01/30/22 18:22 Dose: 4 mg Sodium Chloride (Sodium Chloride 0.9% 10 Ml Flush Syringe) 10 ml IV BID [facility] Last Admin: 01/31/22 21:37 Dose: 10 ml Sodium Chloride (Sodium Chloride 0.9% 10 Ml Flush Syringe) 10 ml IV PRN PRN PRN Reason: LINE FLUSH Sodium Chloride (Sodium Chloride 0.9% 50 Ml Ivpb) 50 ml IV Q24HR@1400 [facility] Stop: 02/03/22 14:01 Last Admin: 01/31/22 13:59 Dose: 50 ml Physical Examination - Physical Exam Narrative exam: Physical Exam (reviewed in chart to minimize risk of transmission) Constitutional: deferred Head, Ears, Nose: deferred Eyes: deferred Neck: deferred Oral: deferred Cardiovascular: deferred Respiratory: deferred GI: deferred Musculoskeletal: deferred Skin: deferred Hem/Lymphatic: deferred Psych: deferred Neurological: deferred - Constitutional Vitals: Vital Signs Temp Pulse Resp BP Pulse Ox 98.8 F 78 17 134/73 93 01/31/22 16:00 01/31/22 21:37 02/01/22 00:00 01/31/22 21:37 02/01/22 09:30 Temperature -Last 24 Hours Temperature 98.8 F Temperature 98.9 F Results - Labs CBC & Chem 7: 01/31/22 05:05 01/31/22 05:05 Labs: Abnormal lab results 01/31/22 01/31/22 Range/Units 10:20 10:20 D-Dimer 1528.40 H (0-234) ng/mlDDU Lactate Dehydrogenase 322 H (91-180) units/L C-Reactive Protein 5.20 H (0.00-1.30) mg/dL - Imaging and Cardiology Chest x-ray: report reviewed, image reviewed (initial with b/l pneumonia, repeat showing interval improvement) Assessment and Plan Cultures: SARS CoV2 PCR: Positive 01/29/2022 blood culture: No growth A/P: 66-year-old male with no significant medical history was admitted to the hospital with shortness of breath, fatigue: #COVID-19 pneumonia: Elevated inflammatory markers, chest x-ray with bilateral pneumonia. Procalcitonin also mildly elevated. CTA was negative for PE. #Acute hypoxic respiratory failure: Likely combination of COVID-19 and CHF #Acute systolic CHF: Cardiology on board. #Transaminitis: Probably from COVID Recs: -Continue IV/PO Dexamethasone x 10 days -Continue IV remdesivir x 5 days -prophylactic anticoagulation based on d-dimer per hospital protocol -Complete empiric antibiotic course: Ceftriaxone for 5 days, azithromycin for 3 days -trend ferritin, d-dimer, CRP every 2-3 days, anticoagulation per protocol Keven Palomo MD, FACP, [facility] O: [phone] F: [phone] C: [phone]
--- NOTE | 2022-02-01 11:42 | Progress Note ---
Assessment and Plan 66 y/o male with acute respiratory failure, COVID positive and new diagnosis of systolic CHF 02/01/22: Continue diuresis, agree with daily lasix. Weaned to room air now. Once euvolemic repeat CT of chest but this can be done as an outpatient. Can follow up in our office post discharge from [facility]. 1. Infiltrates on CT most likely edema, gave another dose of lasix today but only did 20 IV 2. STable on 4 liters, refused bipap last night but did not need it. Keep order but for PRN uses only 3. Agree with steroids. Hopeful ID will agree with Remdesivir but majority of respiratory distress could have been from volume overload 4. Check CRP 5. Appears stable enough for transfer back to [facility] [place] Subjective Date of service: 02/01/22 Principal diagnosis: COVID-19 pneumonia Interval history: No acute events. Weaned to room air this am. On remdesivir and steroids. Tolerated diuresis well. Objective Vital Signs - 12hr 02/01/22 02/01/22 00:00 09:30 Respiratory 17 Rate O2 Sat by Pulse 99 93 Oximetry Constitutional: no acute distress Eyes: non-icteric ENT: oropharynx moist Ascultation: Bilateral: rales CBC and BMP: 01/31/22 05:05 01/31/22 05:05 ABG, PT/INR, D-dimer: ABG ABG pH 7.416 pH Units (7.350-7.450) 01/29/22 14:35 ABG pCO2 35.7 mm Hg 01/29/22 14:35 ABG pO2 134.7 mm Hg (80.0-90.0) H 01/29/22 14:35 ABG O2 Saturation 98.7 % (95.0-99.0) 01/29/22 14:35 PT/INR, D-dimer PT 13.8 Sec. (12.2-14.9) 01/29/22 13:18 INR 0.96 (0.87-1.13) 01/29/22 13:18 D-Dimer 1528.40 ng/mlDDU (0-234) H 01/31/22 10:20 Abnormal lab findings: Abnormal Labs 01/29/22 01/29/22 01/29/22 11:27 11:27 11:27 WBC 13.8 H RBC 2.66 L Hgb 7.1 L Hct 22.3 L MCV MCH 27 L RDW 17.7 H Seg Neuts % (Manual) Lymphocytes % (Manual) Nucleated RBC % Seg Neutrophils # Man Lymphocytes # (Manual) D-Dimer 360.74 H ABG pO2 ABG Hemoglobin Sodium 134 L Chloride 96.1 L Carbon Dioxide 17 L BUN 33 H Glucose Calcium Iron AST 45 H Lactate Dehydrogenase Troponin T C-Reactive Protein NT-Pro-B Natriuret Pep Total Protein 5.8 L Albumin 3.8 L HDL Cholesterol Vitamin B12 SARS-CoV-2 (PCR) Crossmatch 01/29/22 01/29/22 01/29/22 11:27 13:18 14:35 WBC RBC Hgb Hct MCV MCH RDW Seg Neuts % (Manual) Lymphocytes % (Manual) Nucleated RBC % Seg Neutrophils # Man Lymphocytes # (Manual) D-Dimer ABG pO2 134.7 H ABG Hemoglobin 5.8 L Sodium Chloride Carbon Dioxide BUN Glucose Calcium Iron AST Lactate Dehydrogenase Troponin T 0.083 H C-Reactive Protein NT-Pro-B Natriuret Pep 93354 H Total Protein Albumin HDL Cholesterol 67 H Vitamin B12 SARS-CoV-2 (PCR) Crossmatch See Detail 01/29/22 01/29/22 01/29/22 15:25 18:54 18:54 WBC RBC Hgb Hct MCV MCH RDW Seg Neuts % (Manual) Lymphocytes % (Manual) Nucleated RBC % Seg Neutrophils # Man Lymphocytes # (Manual) D-Dimer ABG pO2 ABG Hemoglobin Sodium Chloride Carbon Dioxide BUN Glucose Calcium Iron 10 L AST Lactate Dehydrogenase Troponin T 0.082 H C-Reactive Protein NT-Pro-B Natriuret Pep Total Protein Albumin HDL Cholesterol Vitamin B12 1059 H SARS-CoV-2 (PCR) Crossmatch 01/30/22 01/30/22 01/30/22 07:05 07:05 10:35 WBC 13.9 H RBC 2.60 L Hgb 6.9 L Hct 21.5 L MCV 83 L MCH 27 L RDW 17.6 H Seg Neuts % (Manual) 94.0 H Lymphocytes % (Manual) 1.0 L Nucleated RBC % 4.0 H Seg Neutrophils # Man 13.1 H Lymphocytes # (Manual) 0.1 L D-Dimer ABG pO2 ABG Hemoglobin Sodium Chloride Carbon Dioxide BUN 31 H Glucose Calcium 7.9 L Iron AST Lactate Dehydrogenase Troponin T C-Reactive Protein NT-Pro-B Natriuret Pep Total Protein Albumin HDL Cholesterol Vitamin B12 SARS-CoV-2 (PCR) Positive A Crossmatch 01/30/22 01/31/22 01/31/22 14:42 05:05 05:05 WBC RBC 2.76 L Hgb 7.4 L Hct 22.7 L MCV 82 L MCH 27 L RDW 18.0 H Seg Neuts % (Manual) 98.0 H Lymphocytes % (Manual) 2.0 L Nucleated RBC % 4.0 H Seg Neutrophils # Man 8.4 H Lymphocytes # (Manual) 0.2 L D-Dimer ABG pO2 ABG Hemoglobin Sodium 136 L 135 L Chloride 97.0 L 97.4 L Carbon Dioxide BUN 30 H 26 H Glucose 73 L 123 H Calcium 7.5 L 7.8 L Iron AST 41 H Lactate Dehydrogenase Troponin T C-Reactive Protein NT-Pro-B Natriuret Pep Total Protein 4.7 L 4.8 L Albumin 3.0 L 3.1 L HDL Cholesterol Vitamin B12 SARS-CoV-2 (PCR) Crossmatch 01/31/22 01/31/22 10:20 10:20 WBC RBC Hgb Hct MCV MCH RDW Seg Neuts % (Manual) Lymphocytes % (Manual) Nucleated RBC % Seg Neutrophils # Man Lymphocytes # (Manual) D-Dimer 1528.40 H ABG pO2 ABG Hemoglobin Sodium Chloride Carbon Dioxide BUN Glucose Calcium Iron AST Lactate Dehydrogenase 322 H Troponin T C-Reactive Protein 5.20 H NT-Pro-B Natriuret Pep Total Protein Albumin HDL Cholesterol Vitamin B12 SARS-CoV-2 (PCR) Crossmatch
--- NOTE | 2022-02-01 11:47 | XRay Report ---
CHEST 1 VIEW 02/01/2022 9:08 AM INDICATION / CLINICAL INFORMATION: pulmonary edema. COMPARISON: 01/29/2022 FINDINGS: SUPPORT DEVICES: None. HEART / MEDIASTINUM: No significant abnormality. LUNGS / PLEURA: Significant improved pulmonary edema. No pleural effusion is identified. No pneumotho rax. ADDITIONAL FINDINGS: None IMPRESSION: 1. Improved pulmonary edema. Signer Name: Bertrand Ojeda MD Signed: 02/01/2022 11:42 AM Workstation Name: [id number]
[2022-02-01] MEDS: dexAMETHasone 4 MG/ML VIAL IV SCH (11:56)
[2022-02-01] MEDS: ASCORBIC ACID 500 MG TAB PO SCH (11:57)
[2022-02-01] MEDS: LISINOPRIL 5 MG TAB PO SCH (11:57)
[2022-02-01] MEDS: carvediloL 3.125 MG TAB PO SCH ×2 (11:57→22:42)
[2022-02-01] MEDS: FUROSEMIDE 40 MG TAB PO SCH (11:58)
[2022-02-01] MEDS: FERROUS SULFATE 325 MG TAB PO SCH (11:58)
[2022-02-01] MEDS: cefTRIAXone/NS 1 GM/50 ML 1 GM/50 ML BAG IV SCH (13:53)
[2022-02-01] MEDS: REMDESIVIR 100 MG in SODIUM CHLORIDE 0.9% 250ML 250 ML IV SCH (14:00)
[2022-02-01] MEDS ORDERED: ALUM-MAG HYDROXIDE-SIMETHICONE 200-200-20MG/5ML ORAL LIQD 30 ML PO PRN (14:03)
--- NOTE | 2022-02-01 14:11 | Progress Note ---
Assessment and Plan - Patient Problems (1) Shortness of breath Current Visit: Yes Status: Acute Plan to address problem: Patient presented with shortness of breath, chest x-ray consistent with acute bilateral pneumonia, COVID-19 is positive. There is no clinical or x-ray indication of heart failure. Echocardiogram shows mild left ventricular systolic dysfunction, ejection fraction 40 to 45%, concentric left ventricle hypertrophy and aortic valve sclerosis. Cardiac status is stable and asymptomatic, will follow intermittently. Subjective Date of service: 02/01/22 Principal diagnosis: COVID-19 pneumonia Interval history: Patient is comfortable, no new cardiac events reported. Objective Vital Signs Temp Pulse Pulse Resp BP Pulse Ox 02/01/22 11:57 81 169/86 02/01/22 11:25 97.8 F 81 20 169/106 93 02/01/22 09:30 93 02/01/22 00:00 17 99 01/31/22 22:00 99 01/31/22 21:37 78 134/73 01/31/22 20:00 78 76 20 134/73 96 01/31/22 19:00 81 18 142/76 88 01/31/22 18:00 62 24 142/76 93 01/31/22 17:00 78 26 H 138/97 94 01/31/22 16:00 98.8 F 72 72 23 127/81 95 01/31/22 15:00 68 21 132/80 98 - Physical Examination Narrative exam: Patient looks and feels comfortable on bedrest. Full physical exam is deferred due to acute COVID pneumonia. General: No Apparent Distress
--- NOTE | 2022-02-01 14:23 | Vascular Lab Report ---
DUPLEX DOPPLER LOWER EXTREMITY VEINS, BILATERAL INDICATION / CLINICAL INFORMATION: elevated ddimer. TECHNIQUE: Duplex doppler imaging was performed through the veins of both lower extremities using stormy ous compression and other maneuvers. COMPARISON: None available. FINDINGS: RIGHT COMMON FEMORAL VEIN: Negative. RIGHT FEMORAL VEIN: Negative. RIGHT POPLITEAL VEIN: Negative. RIGHT CALF VEINS: Negative. LEFT COMMON FEMORAL VEIN: Negative. LEFT FEMORAL VEIN: Negative. LEFT POPLITEAL VEIN: Negative. LEFT CALF VEINS: Negative. ADDITIONAL FINDINGS: None. IMPRESSION: 1. No sonographic evidence for DVT in either lower extremity. Scribed by: Vani Ho RDMS, BRUNO, ASIF Scribed: 02/01/2022 1:09 PM I have reviewed the images, agree with this report, and edited this report as needed. Signer Name: Phil Clement MD Signed: 02/01/2022 2:19 PM Workstation Name: [id number]
[2022-02-01] MEDS: SODIUM CHLORIDE 0.9% 50 ML IVPB IV SCH (15:14)
[2022-02-01] MEDS: PANTOPRAZOLE 40 MG TAB PO SCH (15:15)
[2022-02-01 21:32] LABS: Alanine Aminotransferase 38 units/L (7-56); Albumin 3.1 g/dL (3.9-5); BUN/Creatinine Ratio 34; Blood Urea Nitrogen 27 mg/dL (9-20); Hemolysis Index 1
[2022-02-01] MEDS: ENOXAPARIN 40 MG/0.4 ML INJ SUB-Q SCH (22:34)
[2022-02-02 08:36] LABS: Alanine Aminotransferase 36 units/L (7-56); Albumin 3.1 g/dL (3.9-5); BUN/Creatinine Ratio 33; Blood Urea Nitrogen 26 mg/dL (9-20); Calcium 8.1 mg/dL (8.4-10.2); Hemolysis Index 17
--- NOTE | 2022-02-02 10:27 | Progress Note ---
Assessment and Plan Assessment and plan: This is is a 66-year-old male with no known medical history but is a current marijuana smoker who presented to the emergency department on 01/29 by family with complaints of 2 to 3-day history of shortness of breath and severe fatigue. In the emergency department patient was tachycardic, tachypneic and hypertensive. In the emergency department patient was started on antibiotics, started on CPAP given respiratory distress, CXR showed suspected bilateral pneumonia versus edema with mild enlargement of cardiac silhouette, CTA chest showed no evidence of pulmonary embolism, borderline heart size, diffuse bilateral interstitial opacities concerning for pulmonary edema or atypical pneumonia and echocardiogram was completed. Patient was admitted to the hospitalist service with consults to cardiology as a COVID-19 PUI, hypertensive emergency and acute exacerbation of CHF with NSTEMI and anemia. COVID-19 pneumonia Acute hypoxic respiratory failure Acute systolic heart failure Transaminitis Hospital Course: 01/30: Doubt CHF as primary etiology of symptoms. Patient comfortably but is requiring bipap currently. patient appears to have atypical pneumonia consistent with viral pattern in covid pna. Coronavirus pcr pending. Initiated CAP coverage with azithro/rocephin IV. Pulmonary consultation placed. Doubt NSTEMI, d/c heparin gtt. troponin elevation likely type 2 FL. CTA Chest appears to be point more to pna vs chf. Hold Lasix for now due to low blood pressure. Patient appeared euvolemic on exam. Will await ECHO to eval wall motion/function. Will follow for cardiology input. Transfer to [facility] for closer monitoring. 01/31: Patient was never started on CPAP while in [facility] and remained on nasal cannula. Patient COVID-19 PCR was positive. Currently on Rocephin, azithromycin, Decadron and remdesivir. Valsartan dose was decreased but eventually discontinued and Coreg dose was decreased due to borderline blood pressures. 02/01: CXR ordered to assess pulmonary edema, reviewed definite interval improvemen. Ordered lasix 40 mg po daily. Home o2 evaluation ordered. Currently on room air satting 93%. Will follow ID recommendations regarding covid 19 viral pneumonia tx. PT assessment to asses for mobility/gait. Likely dc in next 24hrs given rapid improvement. 02/02: Await physical therapy evaluation to assess for disposition and mobility/gait. Chest x-ray from yesterday shows improvement. Patient with saturations on room air and 6-minute walk test at 95%. Anticipate discharge later today or in a.m. History Interval history: No new issues overnight Hospitalist Physical - Constitutional Vitals: Temp Pulse Resp BP Pulse Ox 98.6 F 71 18 126/80 97 02/02/22 04:38 02/02/22 04:38 02/02/22 04:38 02/02/22 04:38 02/02/22 09:58 General appearance: Present: no acute distress - EENT Eyes: Present: PERRL, EOM intact ENT: hearing intact, clear oral mucosa, dentition normal - Neck Neck: Present: supple, normal ROM - Respiratory Respiratory effort: normal Respiratory: bilateral: CTA - Cardiovascular Rhythm: regular Heart Sounds: Present: S1 & S2. Absent: gallop, rub - Extremities Extremities: no ischemia, No edema, Full ROM - Abdominal General gastrointestinal: soft, non-tender, non-distended, normal bowel sounds - Integumentary Integumentary: Present: clear, warm, dry - Neurologic Neurologic: CNII-XII intact, moves all extremities HEART Score - HEART Score Age: 45-65 Troponin: Troponin T 0.082 ng/mL (0.00-0.029) H 01/29/22 15:25 Results - Labs CBC & Chem 7: 01/31/22 05:05 02/02/22 07:14 Labs: Laboratory Last Values WBC 8.6 K/mm3 (4.5-11.0) 01/31/22 05:05 RBC 2.76 M/mm3 (3.65-5.03) L 01/31/22 05:05 Hgb 7.4 gm/dl (11.8-15.2) L 01/31/22 05:05 Hct 22.7 % (35.5-45.6) L 01/31/22 05:05 MCV 82 fl (84-94) L 01/31/22 05:05 MCH 27 pg (28-32) L 01/31/22 05:05 MCHC 33 % (32-34) 01/31/22 05:05 RDW 18.0 % (13.2-15.2) H 01/31/22 05:05 Plt Count 238 K/mm3 (140-440) 01/31/22 05:05 Add Manual Diff Complete 01/31/22 05:05 Total Counted 100 01/31/22 05:05 Seg Neutrophils % Center Machine Set Up Operator 01/31/22 05:05 Seg Neuts % (Manual) 98.0 % (40.0-70.0) H 01/31/22 05:05 Band Neutrophils % 0 % 01/31/22 05:05 Lymphocytes % (Manual) 2.0 % (13.4-35.0) L 01/31/22 05:05 Reactive Lymphs % (Man) 0 % 01/31/22 05:05 Monocytes % (Manual) 0 % (0.0-7.3) 01/31/22 05:05 Eosinophils % (Manual) 0 % (0.0-4.3) 01/31/22 05:05 Basophils % (Manual) 0 % (0.0-1.8) 01/31/22 05:05 Metamyelocytes % 0 % 01/31/22 05:05 Myelocytes % 0 % 01/31/22 05:05 Promyelocytes % 0 % 01/31/22 05:05 Blast Cells % 0 % 01/31/22 05:05 Nucleated RBC % 4.0 % (0.0-0.9) H 01/31/22 05:05 Seg Neutrophils # Man 8.4 K/mm3 (1.8-7.7) H 01/31/22 05:05 Band Neutrophils # 0.0 K/mm3 01/31/22 05:05 Lymphocytes # (Manual) 0.2 K/mm3 (1.2-5.4) L 01/31/22 05:05 Abs React Lymphs (Man) 0.0 K/mm3 01/31/22 05:05 Monocytes # (Manual) 0.0 K/mm3 (0.0-0.8) 01/31/22 05:05 Eosinophils # (Manual) 0.0 K/mm3 (0.0-0.4) 01/31/22 05:05 Basophils # (Manual) 0.0 K/mm3 (0.0-0.1) 01/31/22 05:05 Metamyelocytes # 0.0 K/mm3 01/31/22 05:05 Myelocytes # 0.0 K/mm3 01/31/22 05:05 Promyelocytes # 0.0 K/mm3 01/31/22 05:05 Blast Cells # 0.0 K/mm3 01/31/22 05:05 WBC Morphology Not Reportable 01/31/22 05:05 Hypersegmented Neuts Not Reportable 01/31/22 05:05 Hyposegmented Neuts Not Reportable 01/31/22 05:05 Hypogranular Neuts Not Reportable 01/31/22 05:05 Smudge Cells Not Reportable 01/31/22 05:05 Toxic Granulation Not Reportable 01/31/22 05:05 Toxic Vacuolation Not Reportable 01/31/22 05:05 Dohle Bodies Not Reportable 01/31/22 05:05 Pelger-Huet Anomaly Not Reportable 01/31/22 05:05 Idalia Rods Not Reportable 01/31/22 05:05 Platelet Estimate Consistent w auto 01/31/22 05:05 Clumped Platelets Not Reportable 01/31/22 05:05 Plt Clumps, EDTA Not Reportable 01/31/22 05:05 Large Platelets Few 01/31/22 05:05 Giant Platelets Not Reportable 01/31/22 05:05 Platelet Satelliting Not Reportable 01/31/22 05:05 Plt Morphology Comment Not Reportable 01/31/22 05:05 RBC Morphology Not Reportable 01/31/22 05:05 Dimorphic RBCs Not Reportable 01/31/22 05:05 Polychromasia Not Reportable 01/31/22 05:05 Hypochromasia Not Reportable 01/31/22 05:05 Poikilocytosis Not Reportable 01/31/22 05:05 Anisocytosis 1+ 01/31/22 05:05 Microcytosis Not Reportable 01/31/22 05:05 Macrocytosis Not Reportable 01/31/22 05:05 Spherocytes Not Reportable 01/31/22 05:05 Pappenheimer Bodies Not Reportable 01/31/22 05:05 Sickle Cells Not Reportable 01/31/22 05:05 Target Cells Not Reportable 01/31/22 05:05 Tear Drop Cells Not Reportable 01/31/22 05:05 Ovalocytes Not Reportable 01/31/22 05:05 Helmet Cells Not Reportable 01/31/22 05:05 [place] Bodies Not Reportable 01/31/22 05:05 [place] Rings Not Reportable 01/31/22 05:05 Mag Cells Not Reportable 01/31/22 05:05 Bite Cells Not Reportable 01/31/22 05:05 Crenated Cell Not Reportable 01/31/22 05:05 Elliptocytes Not Reportable 01/31/22 05:05 Acanthocytes (Spur) Not Reportable 01/31/22 05:05 Rouleaux Not Reportable 01/31/22 05:05 Hemoglobin C Crystals Not Reportable 01/31/22 05:05 Schistocytes Not Reportable 01/31/22 05:05 Malaria parasites Not Reportable 01/31/22 05:05 Benji Bodies Not Reportable 01/31/22 05:05 Hem Pathologist Commnt No 01/31/22 05:05 PT 13.8 Sec. (12.2-14.9) 01/29/22 13:18 INR 0.96 (0.87-1.13) 01/29/22 13:18 APTT 26.4 Sec. (24.2-36.6) 01/29/22 13:18 D-Dimer 3289.16 ng/mlDDU (0-234) H 02/02/22 07:14 ABG pH 7.416 pH Units (7.350-7.450) 01/29/22 14:35 ABG pCO2 35.7 mm Hg 01/29/22 14:35 ABG pO2 134.7 mm Hg (80.0-90.0) H 01/29/22 14:35 ABG HCO3 22.4 mmol/L (20.0-26.0) 01/29/22 14:35 ABG O2 Saturation 98.7 % (95.0-99.0) 01/29/22 14:35 ABG O2 Content 8.2 (0.0-44) 01/29/22 14:35 ABG Base Excess -1.9 mmol/L (-2.0-3.0) 01/29/22 14:35 ABG Hemoglobin 5.8 gm/dl (14.0-18.0) L 01/29/22 14:35 ABG Carboxyhemoglobin 1.5 % (0.0-5.0) 01/29/22 14:35 ABG Methemoglobin 0.5 % (0.0-1.5) 01/29/22 14:35 Oxyhemoglobin 96.7 % (95.0-99.0) 01/29/22 14:35 FiO2 100 % 01/29/22 14:35 Sodium 136 mmol/L (137-145) L 02/02/22 07:14 Potassium 4.0 mmol/L (3.6-5.0) 02/02/22 07:14 Chloride 100.1 mmol/L (98-107) 02/02/22 07:14 Carbon Dioxide 28 mmol/L (22-30) 02/02/22 07:14 Anion Gap 12 mmol/L 02/02/22 07:14 BUN 26 mg/dL (9-20) H 02/02/22 07:14 Creatinine 0.8 mg/dL (0.8-1.3) 02/02/22 07:14 Estimated GFR > 60 ml/min 02/02/22 07:14 BUN/Creatinine Ratio 33 % 02/02/22 07:14 Glucose 99 mg/dL (75-100) 02/02/22 07:14 Calcium 8.1 mg/dL (8.4-10.2) L 02/02/22 07:14 Magnesium 2.30 mg/dL (1.7-2.3) 01/29/22 11:27 Iron Center Machine Set Up Operator 01/30/22 08:53 TIBC 252 mcg/dL (250-450) 01/30/22 08:53 % Saturation Not Reportable 01/30/22 08:53 Transferrin 214 mg/dl (180-329) 01/30/22 08:53 Ferritin 34.6 ng/mL (30.0-300.0) 02/02/22 07:14 Total Bilirubin 0.40 mg/dL (0.1-1.2) 02/02/22 07:14 AST 26 units/L (5-40) 02/02/22 07:14 ALT 36 units/L (7-56) 02/02/22 07:14 Alkaline Phosphatase 82 units/L (35-129) 02/02/22 07:14 Lactate Dehydrogenase 377 units/L (91-180) H 02/02/22 07:14 Troponin T 0.082 ng/mL (0.00-0.029) H 01/29/22 15:25 C-Reactive Protein 1.50 mg/dL (0.00-1.30) H 02/02/22 07:14 NT-Pro-B Natriuret Pep 53123 pg/mL (0-900) H 01/29/22 11:27 Total Protein 5.0 g/dL (6.3-8.2) L 02/02/22 07:14 Albumin 3.1 g/dL (3.9-5) L 02/02/22 07:14 Albumin/Globulin Ratio 1.6 % 02/02/22 07:14 Triglycerides 66 mg/dL (2-149) 01/29/22 11:27 Cholesterol 183 mg/dL (50-199) 01/29/22 11:27 LDL Cholesterol Direct 106 mg/dL (50-130) 01/29/22 11:27 HDL Cholesterol 67 mg/dL (40-59) H 01/29/22 11:27 Cholesterol/HDL Ratio 2.73 % 01/29/22 11:27 Vitamin B12 1059 pg/mL (211-911) H 01/29/22 18:54 Procalcitonin 0.48 ng/mL (<0.15) 01/29/22 12:07 Urine Color Straw (Yellow) 01/29/22 15:28 Urine Turbidity Clear (Clear) 01/29/22 15:28 Specific [place] (Man) 1.005 (1.003-1.030) 01/29/22 15:28 Ur Protein (Man) Negative mg/dL (Negative) 01/29/22 15:28 Ur Ketones (Man) Negative (Negative) 01/29/22 15:28 Ur Nitrite (Man) Negative (Negative) 01/29/22 15:28 Urine Bilirubin (Man) Negative (Negative) 01/29/22 15:28 Leukocyte Esterase (Man) Negative (Negative) 01/29/22 15:28 Urine WBC (Auto) < 1.0 /HPF (0.0-6.0) 01/29/22 15:28 Urine RBC (Auto) 4.0 /HPF (0.0-6.0) 01/29/22 15:28 U Epithel Cells (Auto) 1.0 /HPF (0-13.0) 01/29/22 15:28 Urine Bacteria (Auto) 1+ /HPF (Negative) 01/29/22 15:28 Urine RBC (Manual) Negative (Negative) 01/29/22 15:28 Hyaline Casts 9 /LPF 01/29/22 15:28 SARS-CoV-2 (PCR) Positive (Negative) A 01/30/22 10:35 Blood Type O POSITIVE 01/29/22 13:18 Antibody Screen Negative 01/29/22 13:18 Crossmatch See Detail 01/29/22 13:18 Microbiology: Microbiology 01/29/22 13:01 Peripheral/Venous Blood Culture - Preliminary NO GROWTH AFTER 72 HOURS 01/29/22 13:01 Peripheral/Venous Blood Culture - Preliminary NO GROWTH AFTER 72 HOURS Zaldivar/IV: Voiding Method Urinal Active Medications - Current Medications Current Medications: Generic Name Dose Route Start Last Admin Trade Name Freq PRN Reason Stop Dose Admin Acetaminophen 650 mg 01/29/22 17:16 Acetaminophen 325 Mg Tab PO Q4H PRN Pain MILD(1-3)/Fever >100.5/STACY Al Hydrox/Mg Hydrox/Simethicone 30 ml 02/01/22 14:03 02/01/22 14:16 Alum-Mag Hydroxide-Simethicone [id number]/5ml Oral Liqd 30 Ml PO 30 ml Q4H PRN Administration Indigestion Ascorbic Acid 500 mg 02/01/22 10:00 02/01/22 11:57 Ascorbic Acid 500 Mg Tab PO 500 mg QDAY GARRETT Administration Carvedilol 3.125 mg 01/31/22 22:00 02/01/22 22:42 Carvedilol 3.125 Mg Tab PO 3.125 mg BID GARRETT Administration Dexamethasone 6 mg 02/02/22 10:00 Dexamethasone 4 Mg Tab PO 02/08/22 10:59 DAILY [facility] Enoxaparin Sodium 40 mg 01/30/22 22:00 02/01/22 22:34 Enoxaparin 40 Mg/0.4 Ml Inj SUB-Q 40 mg QDAY@2200 [facility] Administration Protocol Ferrous Sulfate 325 mg 02/01/22 10:00 02/01/22 11:58 Ferrous Sulfate 325 Mg Tab PO 325 mg QDAY GARRETT Administration Furosemide 40 mg 02/01/22 10:00 02/01/22 11:58 Furosemide 40 Mg Tab PO 40 mg QDAY GARRETT Administration Hydralazine HCl 10 mg 01/29/22 18:13 01/29/22 19:54 Hydralazine 20 Mg/1 Ml Inj IV 10 mg Q3H PRN Administration Blood Pressure Ceftriaxone Sodium 1 gm in 50 mls @ 100 mls/hr 01/30/22 13:00 02/01/22 13:53 Rocephin/Ns 1 Gm/50 Ml IV 02/04/22 12:59 100 mls/hr Q24H GARRETT Administration Protocol Remdesivir 100 mg/ Sodium 250 mls @ 500 mls/hr 01/31/22 14:00 02/01/22 14:00 Chloride IV 02/03/22 14:29 500 mls/hr Q24HR@1400 GARRETT Administration Lisinopril 5 mg 02/01/22 10:00 02/01/22 11:57 Lisinopril 5 Mg Tab PO 5 mg QDAY GARRETT Administration Ondansetron HCl 4 mg 01/29/22 17:16 01/30/22 18:22 Ondansetron 4 Mg/2 Ml Inj IV 4 mg Q8H PRN Administration Nausea And Vomiting Pantoprazole Sodium 40 mg 02/01/22 15:00 02/01/22 15:15 Pantoprazole 40 Mg Tab PO 40 mg QDAC GARRETT Administration Sodium Chloride 10 ml 01/29/22 22:00 02/01/22 22:35 Sodium Chloride 0.9% 10 Ml Flush Syringe IV 10 ml BID GARRETT Administration Sodium Chloride 10 ml 01/29/22 17:16 Sodium Chloride 0.9% 10 Ml Flush Syringe IV PRN PRN LINE FLUSH Sodium Chloride 50 ml 01/30/22 14:00 02/01/22 15:14 Sodium Chloride 0.9% 50 Ml Ivpb IV 02/03/22 14:01 50 ml Q24HR@1400 GARRETT Administration
[2022-02-02] MEDS: FERROUS SULFATE 325 MG TAB PO SCH (10:59)
[2022-02-02] MEDS: carvediloL 3.125 MG TAB PO SCH ×2 (11:00→22:59)
[2022-02-02] MEDS: DEXAMETHASONE 4 MG TAB PO SCH (11:00)
[2022-02-02] MEDS: ASCORBIC ACID 500 MG TAB PO SCH (11:04)
[2022-02-02] MEDS: FUROSEMIDE 40 MG TAB PO SCH (11:04)
[2022-02-02] MEDS: PANTOPRAZOLE 40 MG TAB PO SCH (11:04)
[2022-02-02] MEDS: LISINOPRIL 5 MG TAB PO SCH (11:05)
--- NOTE | 2022-02-02 12:48 | Progress Note ---
Assessment and Plan Cultures: SARS CoV2 PCR: Positive 01/29/2022 blood culture: No growth A/P: 66-year-old male with no significant medical history was admitted to the hospital with shortness of breath, fatigue: #COVID-19 pneumonia: Elevated inflammatory markers, chest x-ray with bilateral pneumonia. Procalcitonin also mildly elevated. CTA was negative for PE. Labs 02/02/2022 WBC 8.6, D-dimer 3289, CRP 1.5, LDH 377. #Acute hypoxic respiratory failure: Likely combination of COVID-19 and CHF #Acute systolic CHF: Cardiology on board. #Transaminitis: Probably from COVID. #Elevated d-dimer: DVT scan negative. CTA negative for PE. Recs: -Continue IV/PO Dexamethasone x 10 days -Continue IV remdesivir x 5 days -prophylactic anticoagulation based on d-dimer per hospital protocol -Complete empiric antibiotic course: Ceftriaxone for 5 days, azithromycin for 3 days -CRP improving, down to 1.5 Keven Palomo MD, FACP, [facility] O: [phone] F: [phone] C: [phone] Subjective Date of service: 02/02/22 Principal diagnosis: COVID-19 pneumonia Interval history: Afebrile. On nasal cannula at 2 L/min. WBC 8.6, D-dimer 3289, CRP 1.5, LDH 377. Objective - Exam Narrative Exam: Physical Exam (reviewed in chart to minimize risk of transmission) Constitutional: deferred Head, Ears, Nose: deferred Eyes: deferred Neck: deferred Oral: deferred Cardiovascular: deferred Respiratory: deferred GI: deferred Musculoskeletal: deferred Skin: deferred Hem/Lymphatic: deferred Psych: deferred Neurological: deferred - Constitutional Vitals: Vital Signs Temp Pulse Resp BP Pulse Ox 97 F L 70 18 163/104 97 02/02/22 11:05 02/02/22 11:05 02/02/22 04:38 02/02/22 11:05 02/02/22 09:58 Temperature -Last 24 Hours Temperature 97 F Temperature 98.6 F Temperature 99.1 F - Labs CBC & Chem 7: 01/31/22 05:05 02/02/22 07:14 Labs: Abnormal lab results 02/01/22 02/02/22 02/02/22 Range/Units 20:16 07:14 07:14 D-Dimer 3289.16 H (0-234) ng/mlDDU Sodium 135 L 136 L (137-145) mmol/L BUN 27 H 26 H (9-20) mg/dL Glucose 121 H (75-100) mg/dL Calcium 8.0 L 8.1 L (8.4-10.2) mg/dL Lactate Dehydrogenase 377 H (91-180) units/L C-Reactive Protein 1.50 H (0.00-1.30) mg/dL Total Protein 5.1 L 5.0 L (6.3-8.2) g/dL Albumin 3.1 L 3.1 L (3.9-5) g/dL
[2022-02-02] MEDS: cefTRIAXone/NS 1 GM/50 ML 1 GM/50 ML BAG IV SCH (13:11)
[2022-02-02] MEDS: SODIUM CHLORIDE 0.9% 50 ML IVPB IV SCH (13:12)
[2022-02-02] MEDS: REMDESIVIR 100 MG in SODIUM CHLORIDE 0.9% 250ML 250 ML IV SCH (13:12)
[2022-02-02] MEDS: ENOXAPARIN 40 MG/0.4 ML INJ SUB-Q SCH (22:59)
[2022-02-03 08:27] LABS: Hematocrit 27.1 % (35.5-45.6); Hemoglobin 8.7 gm/dl (11.8-15.2); Mean Corpuscular HGB Conc 32 % (32-34); Mean Corpuscular Volume 82 fl (84-94); Platelet Count 239 K/mm3 (140-440); Red Cell Distribution Width 18.2 % (13.2-15.2)
[2022-02-03 08:46] LABS: BUN/Creatinine Ratio 31; Blood Urea Nitrogen 25 mg/dL (9-20); Calcium 8.3 mg/dL (8.4-10.2); Hemolysis Index 5
--- NOTE | 2022-02-03 09:07 | Discharge Summary ---
Providers - Providers Date of Admission: 01/29/22 17:16 Date of discharge: 02/03/22 Attending physician: ANGEL FRAZIER 01/29/22 17:16 Consult to Physician [CONS] Routine Comment: Consulting Provider: MARCIA TELLO Physician Instructions: Reason For Exam: New Onset Heart Failure 01/30/22 16:08 Consult to Physician [CONS] Routine Comment: Consulting Provider: KATTY MERCER Physician Instructions: Reason For Exam: covid 19 pneumonia 02/01/22 08:10 Consult to Case Management [CONS] Routine Services Needed at Discharge: Home O2 Notified:: cm Was contact made?: No Time called:: 08:21 Comment:: cm self consult Physical Therapy Evaluation and Treat [CONS] Routine Comment: Reason For Exam: debility Primary care physician: [employer]ER Hospitalization Reason for admission: COVID PNA Condition: Stable Hospital course: This is is a 66-year-old male with no known medical history but is a current marijuana smoker who presented to the emergency department on 01/29 by family with complaints of 2 to 3-day history of shortness of breath and severe fatigue. In the emergency department patient was tachycardic, tachypneic and hypertensive. In the emergency department patient was started on antibiotics, started on CPAP given respiratory distress, CXR showed suspected bilateral pneum onia versus edema with mild enlargement of cardiac silhouette, CTA chest showed no evidence of pulmonary embolism, borderline heart size, diffuse bilateral interstitial opacities concerning for pulmonary edema or atypical pneumonia and echocardiogram was completed. Patient was admitted to the hospitalist service with consults to cardiology as a COVID-19 PUI, hypertensive emergency and acute exacerbation of CHF with NSTEMI and anemia. COVID-19 pneumonia Acute hypoxic respiratory failure Chronic systolic heart failure Transaminitis Hospital Course: 01/30: Doubt CHF as primary etiology of symptoms. Patient comfortably but is requiring bipap currently. patient appears to have atypical pneumonia consistent with viral pattern in covid pna. Coronavirus pcr pending. Initiated CAP coverage with azithro/rocephin IV. Pulmonary consultation placed. Doubt NSTEMI, d/c heparin gtt. troponin elevation likely type 2 GA. CTA Chest appears to be point more to pna vs chf. Hold Lasix for now due to low blood pressure. Patient appeared euvolemic on exam. Will await ECHO to eval wall motion/function. Will follow for cardiology input. Transfer to [facility] for closer monitoring. 01/31: Patient was never started on CPAP while in [facility] and remained on nasal cannula. Patient COVID-19 PCR was positive. Currently on Rocephin, azithromycin, Decadron and remdesivir. Valsartan dose was decreased but eventually discontinued and Coreg dose was decreased due to borderline blood pressures. 02/01: CXR ordered to assess pulmonary edema, reviewed definite interval improvemen. Ordered lasix 40 mg po daily. Home o2 evaluation ordered. Currently on room air satting 93%. Will follow ID recommendations regarding covid 19 viral pneumonia tx. PT assessment to asses for mobility/gait. Likely dc in next 24hrs given rapid improvement. 02/02: Await physical therapy evaluation to assess for disposition and mobility/gait. Chest x-ray from yesterday shows improvement. Patient with saturations on room air and 6-minute walk test at 95%. Anticipate discharge later today or in a.m. 02/03: Cardiology reports echocardiogram showed mild left ventricular systolic dysfunction with EF of 40-45%, concentric left ventricular hypertrophy and aortic valve sclerosis. However cardiology feels that there is no clinical evidence or indication of heart failure. Acute systolic heart failure ruled out. Acute respiratory failure was secondary to COVID-19 Pneumonia. Patient is back to baseline respiratory status Dedicated discharge time 32 minutes Disposition: 01 HOME / SELF CARE / HOMELESS Final Discharge Diagnosis (Prints w/discharge instructions): COVID-19 pneumonia. Acute hypoxic respiratory failure. Chronic systolic heart failure. Transaminitis Core Measure Documentation - Palliative Care Palliative Care/ Comfort Measures: Not Applicable - Core Measures Any of the following diagnoses?: none Exam - Constitutional Vitals: Temp Pulse Resp BP Pulse Ox 97.7 F 68 20 150/104 97 02/03/22 04:23 02/03/22 04:23 02/03/22 04:23 02/03/22 04:23 02/03/22 04:23 General appearance: Present: no acute distress, well-nourished - EENT Eyes: Present: PERRL ENT: hearing intact, clear oral mucosa - Neck Neck: Present: supple, normal ROM - Respiratory Respiratory effort: normal Respiratory: bilateral: CTA - Cardiovascular Heart Sounds: Present: S1 & S2. Absent: rub, click - Extremities Extremities: pulses symmetrical, No edema Peripheral Pulses: within normal limits - Abdominal General gastrointestinal: Present: soft, non-tender, non-distended, normal bowel sounds Male genitourinary: Present: normal - Integumentary Integumentary: Present: clear, warm, dry - Musculoskeletal Musculoskeletal: gait normal, strength equal bilaterally - Psychiatric Psychiatric: appropriate mood/affect, intact judgment & insight - Neurologic Neurologic: CNII-XII intact, moves all extremities Plan Activity: advance as tolerated Weight Bearing Status: Weight Bear as Tolerated Diet: regular Follow up with: PRIMARY CAREMD [Primary Care Provider] - 3-5 Days KATTY MERCER MD [Staff Physician] - 7 Days Prescriptions: carvediloL [Coreg] 3.125 mg PO BID #60 tablet Dexamethasone 6 mg PO DAILY #8 lisinopriL [Zestril TAB] 5 mg PO QDAY #30 tablet
--- NOTE | 2022-02-03 09:26 | Progress Note ---
Assessment and Plan Cultures: SARS CoV2 PCR: Positive 01/29/2022 blood culture: No growth A/P: 66-year-old male with no significant medical history was admitted to the hospital with shortness of breath, fatigue: #COVID-19 pneumonia: Elevated inflammatory markers, chest x-ray with bilateral pneumonia. Procalcitonin also mildly elevated. CTA was negative for PE. Labs 02/02/2022 WBC 8.6, D-dimer 3289, CRP 1.5, LDH 377. #Acute hypoxic respiratory failure: Likely combination of COVID-19 and CHF #Acute systolic CHF: Cardiology on board. #Transaminitis: Probably from COVID. #Elevated d-dimer: DVT scan negative. CTA negative for PE. Recs: -Continue IV/PO Dexamethasone x 10 days -weaned to room air, does not need to stay inpatient to complete remdesivir. Abx can also stop. OK for discharge from ID standpoint Keven Palomo MD, FACP, [facility] O: [phone] F: [phone] C: [phone] Subjective Date of service: 02/03/22 Principal diagnosis: COVID-19 pneumonia Interval history: No fever. Remains on room air. WBC 9.1, ferritin 34.6 Objective - Exam Narrative Exam: Physical Exam (reviewed in chart to minimize risk of transmission) Constitutional: deferred Head, Ears, Nose: deferred Eyes: deferred Neck: deferred Oral: deferred Cardiovascular: deferred Respiratory: deferred GI: deferred Musculoskeletal: deferred Skin: deferred Hem/Lymphatic: deferred Psych: deferred Neurological: deferred - Constitutional Vitals: Vital Signs Temp Pulse Resp BP Pulse Ox 97.7 F 68 20 150/104 97 02/03/22 04:23 02/03/22 04:23 02/03/22 04:23 02/03/22 04:23 02/03/22 04:23 Temperature -Last 24 Hours Temperature 97.7 F Temperature 97.8 F Temperature 97.3 F Temperature 97 F - Labs CBC & Chem 7: 02/03/22 07:57 02/03/22 07:57 Labs: Abnormal lab results 02/03/22 02/03/22 Range/Units 07:57 07:57 RBC 3.30 L (3.65-5.03) M/mm3 Hgb 8.7 L (11.8-15.2) gm/dl Hct 27.1 L (35.5-45.6) % MCV 82 L (84-94) fl MCH 27 L (28-32) pg RDW 18.2 H (13.2-15.2) % BUN 25 H (9-20) mg/dL Calcium 8.3 L (8.4-10.2) mg/dL
[2022-02-03] MEDS: FERROUS SULFATE 325 MG TAB PO SCH (09:39)
[2022-02-03] MEDS: FUROSEMIDE 40 MG TAB PO SCH (09:40)
[2022-02-03] MEDS: PANTOPRAZOLE 40 MG TAB PO SCH (09:40)
[2022-02-03] MEDS: LISINOPRIL 5 MG TAB PO SCH (09:40)
[2022-02-03] MEDS: ASCORBIC ACID 500 MG TAB PO SCH (09:40)
[2022-02-03] MEDS: DEXAMETHASONE 4 MG TAB PO SCH (09:40)
[2022-02-03] MEDS: carvediloL 3.125 MG TAB PO SCH (09:40)
[2022-02-03 11:19] VITALS: BP 160/103
[2022-02-03] MEDS: hydrALAZINE 20 MG/1 ML INJ IV PRN (12:36)
[2022-02-03] MEDS: cefTRIAXone/NS 1 GM/50 ML 1 GM/50 ML BAG IV SCH (12:36)
[2022-02-03] MEDS: REMDESIVIR 100 MG in SODIUM CHLORIDE 0.9% 250ML 250 ML IV SCH (14:59)
[2022-02-03] MEDS: SODIUM CHLORIDE 0.9% 50 ML IVPB IV SCH (14:59)
[2022-02-03 16:34] LABS: Basophils % (Auto) 0.4 % (0.0-1.8); Eosinophils % (Auto) 0.4 % (0.0-4.3); Lymphocytes # (Auto) 3.6 K/mm3 (1.2-5.4); Lymphocytes % (Auto) 39.9 % (13.4-35.0); Mean Platelet Volume 8.7 fl (6-12); Monocytes # (Auto) 0.7 K/mm3 (0.0-0.8); Monocytes % (Auto) 7.3 % (0.0-7.3)
== END 2022-02-03 14:50 | disposition home or self-care (01) | DRG 177 ==
LOC: ED 10:27 → 3A 17:16 → CC1 01-30 16:19 → 3A 01-31 20:52
PROVIDERS: ADMIT Internal Medicine; ATTEND Hospitalist
PROC: 4A033R1 Measurement of Arterial Saturation, Peripheral, Percutaneous Approach (ICD-10-PCS; 2022-01-29)
PROC: 5A09457 Assistance with Respiratory Ventilation, 24-96 Consecutive Hours, Continuous Positive Airway Pressure (ICD-10-PCS; 2022-01-29)
PROC: 30233N1 Transfusion of Nonautologous Red Blood Cells into Peripheral Vein, Percutaneous Approach (ICD-10-PCS; principal; 2022-01-30)
PROC: XW033E5 Introduction of Remdesivir Anti-infective into Peripheral Vein, Percutaneous Approach, New Technology Group 5 (ICD-10-PCS; 2022-01-30)
DX: U07.1 COVID-19 (principal); I21.A1 Myocardial infarction type 2; J12.82 Pneumonia due to coronavirus disease 2019; J96.01 Acute respiratory failure with hypoxia; I16.1 Hypertensive emergency; E44.0 Moderate protein-calorie malnutrition; I50.22 Chronic systolic (congestive) heart failure; I11.0 Hypertensive heart disease with heart failure; D64.9 Anemia, unspecified; R74.01 Elevation of levels of liver transaminase levels; Z68.25 Body mass index [BMI] 25.0-25.9, adult
CPT/HCPCS: 36415; 71045; 71275; 80048; 80053; 80061; 81001; 82270; 82607; 82728; 82747; 82803; 83550; 83615; 83735; 83880; 84145; 84484; 85007; 85025; 85027; 85379; 85610; 85730; 86140; 86850; 86900; 86901; 86920; 87040; 93005; 93306; 93970; 94644; 94660; 94760; 96374; 96375; 99285; G0378; C8929; J0360; J0456; J0696; J1100; J1650; J1940; J2405; J7040; J7050; J8540; P9016; Q9967; U0003